=== PATIENT | male | born 1970 | race Caucasian/White ===

== ENCOUNTER 2022-10-20 15:11 | Inpatient (IN) | payer MEDICARE ==
--- NOTE | 2022-10-20 17:25 | ED ---
Psych HPI - General Chief Complaint: Psychiatric Symptoms Stated Complaint: Mental Health Evaluation Time Seen by Provider: 10/20/22 17:04 Source: patient Mode of arrival: ambulatory - History of Present Illness Initial Comments: This patient is a 52-year-old man who presents with complaint that he is more depressed than usual and having persistent thoughts of suicide. The patient states he has long-standing history of years of relapsing and recurring depression. Patient moved recently and when he changed County[place] they stop this medication. He states that things got little worse after that. It is been about a month. MD Complaint: suicidal ideation, feels depressed Onset/Timin -: month(s) Associated Psychiatric Symptoms: depression, suicidal ideation History of same: Yes Quality: intermittent, getting worse Improves With: medication Context: not taking psychiatric medications Associated Symptoms: denies other symptoms - Related Data Home Medications Medication Instructions Recorded Confirmed Ascorbic Acid [Vitamin C] 1,000 mg PO DAILY 10/20/22 10/20/22 Cholecalciferol [Vitamin D3 (125 375 mcg PO DAILY 10/20/22 10/20/22 Mcg = 5000 Iu)] Cholecalciferol [Vitamin D3 (25 25 mcg PO DAILY 10/20/22 10/20/22 Mcg = 1000 Iu)] Cyanocobalamin [Vitamin B-12] 500 mcg PO DAILY 10/20/22 10/20/22 FLUoxetine HCL [PROzac] 40 mg PO DAILY 10/20/22 10/20/22 Fenofibrate Nanocrystallized 145 mg PO DAILY 10/20/22 10/20/22 [Fenofibrate] Metoprolol Tartrate [Lopressor] 50 mg PO BID 10/20/22 10/20/22 OLANZapine [ZyPREXA] 20 mg PO HS 10/20/22 10/20/22 Omeprazole [PriLOSEC] 40 mg PO DAILY 10/20/22 10/20/22 Rosuvastatin [Crestor] 20 mg PO DAILY 10/20/22 10/20/22 Zinc Gluconate [Zinc] 50 mg PO DAILY 10/20/22 10/20/22 amLODIPine [Norvasc] 10 mg PO DAILY 10/20/22 10/20/22 clonazePAM [KlonoPIN] 1 mg PO HS 10/20/22 10/20/22 glipiZIDE [Glucotrol XL] 10 mg PO DAILY 10/20/22 10/20/22 hydroCHLOROthiazide 12.5 mg PO DAILY 10/20/22 10/20/22 lisinopriL [Zestril] 40 mg PO BID 10/20/22 10/20/22 metFORMIN HCL [Glucophage] 1,000 mg PO BID 10/20/22 10/20/22 Allergies Allergy/AdvReac Type Severity Reaction Status Date / Time Penicillins Allergy Diarrhea Verified 10/20/22 17:24 Review of Systems ROS Statement: Those systems with pertinent positive or pertinent negative responses have been documented in the HPI. ROS Other: All systems not noted in ROS Statement are negative. Constitutional: Denies: fever Respiratory: Denies: cough, dyspnea Cardiovascular: Denies: chest pain, palpitations Gastrointestinal: Denies: abdominal pain, vomiting, diarrhea Genitourinary: Denies: dysuria Musculoskeletal: Denies: back pain Skin: Denies: rash Neurological: Denies: headache, weakness Psychiatric: Reports: depression, suicidal thoughts Past Medical History Past Medical History: Asthma, Diabetes Mellitus, Hypertension Additional Past Medical History / Comment(s): diverticulitis History of Any Multi-Drug Resistant Organisms: None Reported Past Surgical History: Tonsillectomy Past Psychological History: Anxiety, Bipolar Smoking Status: Current every day smoker Past Alcohol Use History: Occasional Past Drug Use History: None Reported - Past Family History Father History Unknown: Yes Family Medical History: Hypertension General Exam Limitations: no limitations General appearance: alert, in no apparent distress Head exam: Present: atraumatic, normocephalic Eye exam: Present: normal appearance. Absent: scleral icterus, conjunctival inj ection Neck exam: Present: normal inspection, full ROM Respiratory exam: Present: normal lung sounds bilaterally. Absent: respiratory distress, wheezes, rales, rhonchi, stridor Cardiovascular Exam: Present: regular rate, normal rhythm, normal heart sounds. Absent: systolic murmur, diastolic murmur, rubs, gallop GI/Abdominal exam: Present: soft. Absent: distended, tenderness, guarding, rebound, rigid, mass Extremities exam: Present: normal inspection, normal capillary refill. Absent: pedal edema, calf tenderness Back exam: Present: normal inspection. Absent: CVA tenderness (R), CVA tenderness (L) Neurological exam: Present: alert Psychiatric exam: Present: depressed, suicidal ideation. Absent: agitated, anxious, flat affect, manic, homicidal ideation Skin exam: Present: warm, dry, intact, normal color. Absent: rash Course Vital Signs 10/20/22 15:16 Temperature 98.2 F Pulse Rate 81 Respiratory 16 Rate Blood Pressure 132/80 O2 Sat by Pulse 98 Oximetry Medical Decision Making - Medical Decision Making This patient is 52-year-old man with previous history of depression and suicidal ideation, who is having recurrence of the same. He had been off his medication due to relocating to [facility]. The patient is seen and evaluated by EPS,, and they will admit for further treatment here. Was pt. sent in by a medical professional or institution (, PA, BUSINESS SOLUTIONS ARCHITECT, urgent care, hospital, or fpc...) When possible be specific @ -[No] Did you speak to anyone other than the patient for history (EMS, parent, family, police, friend...)? What history was obtained from this source @ -[Patient family members at bedside during history and physical Did you review nursing and triage notes (agree or disagree)? Why? @ -[I reviewed and agree with nursing and triage notes] Were old charts reviewed (outside hosp., previous admission, EMS record, old EKG, old radiological studies, urgent care reports/EKG's, fpc records)? Report findings @ -[No old charts were reviewed] Differential Diagnosis (chest pain, altered mental status, abdominal pain women, abdominal pain men, vaginal bleeding, weakness, fever, dyspnea, syncope, headache, dizziness, GI bleed, back pain, seizure, CVA, palpatations, mental health, musculoskeletal)? @ -[Differential Mental Health Depression, anxiety, bipolar, psychosis, schizophrenia, borderline personality, situational depression, adjustment disorder, behavioral disorder, brain tumor, malingering, substance abuse, encephalopathy, medication reaction, dementia, hypothyroidism, degenerative neurologic disorder, lupus.... This is not meant to be all-inclusive list EKG interpreted by me (3pts min.). @ -[ X-rays interpreted by me (1pt min.). @ -[None done] CT interpreted by me (1pt min.). @ -[None done] U/S interpreted by me (1pt. min.). @ -[None done] What testing was considered but not performed or refused? (CT, X-rays, U/S, lab s)? Why? @ -[None] What meds were considered but not given or refused? Why? @ -[None] Did you discuss the management of the patient with other professionals (professionals i.e. , PA, BUSINESS SOLUTIONS ARCHITECT, lab, RT, psych nurse, social services specialist, bleach plant operator, teacher, life science technical officer, immigration case worker)? Give summary @ -[EPS personnel Was smoking cessation discussed for >3mins.? @ -[No] Was critical care preformed (if so, how long)? @ -[No] Were there social determinants of health that impacted care today? How? (Homelessness, low income, unemployed, alcoholism, drug addiction, transportation, low edu. Level, literacy, decrease access to med. care, skilled nursing, rehab)? @ -[No] Was there de-escalation of care discussed even if they declined (Discuss DNR or withdrawal of care, Hospice)? DNR status @ -[No] What co-morbidities impacted this encounter? (DM, HTN, Smoking, COPD, CAD, Cancer, CVA, ARF, Chemo, Hep., AIDS, mental health diagnosis, sleep apnea, morbid obesity)? @ -[Previous mood disorder Was patient admitted / discharged? Hospital course, mention meds given and route, prescriptions, significant lab abnormalities, going to OR and other pertinent info. @ -[Admitted Undiagnosed new problem with uncertain prognosis? @ -[No] Drug Therapy requiring intensive monitoring for toxicity (Heparin, Nitro, Insulin, Cardizem)? @ -[No] Were any procedures done? @ -[No] Diagnosis/symptom? @ -[Mood disorder Suicidal ideation Acute, or Chronic, or Acute on Chronic? @ -[Acute on chronic Uncomplicated (without systemic symptoms) or Complicated (systemic symptoms)? @ -[Uncomplicated Side effects of treatment? @ -[No] Exacerbation, Progression, or Severe Exacerbation? @ -[No] Poses a threat to life or bodily function? How? (Chest pain, [place], [place], pneumonia, PE, COPD, DKA, ARF, appy, cholecystitis, CVA, Diverticulitis, Homicidal, Suicidal, threat to staff... and all critical care pts) @ -[Yes, untreated mood disorder may progress to suicide attempt - Lab Data Result diagrams: 10/20/22 19:40 10/20/22 19:40 Lab Results 10/20/22 10/20/22 10/20/22 Range/Units 19:40 19:40 19:40 WBC 8.7 (3.8-10.6) k/uL RBC 4.85 (4.30-5.90) m/uL Hgb 14.4 (13.0-17.5) gm/dL Hct 41.7 (39.0-53.0) % MCV 86.0 (80.0-100.0) fL MCH 29.8 (25.0-35.0) pg MCHC 34.6 (31.0-37.0) g/dL RDW 13.1 (11.5-15.5) % Plt Count 275 (150-450) k/uL MPV 8.2 Neutrophils % 65 % Lymphocytes % 26 % Monocytes % 5 % Eosinophils % 2 % Basophils % 0 % Neutrophils # 5.7 (1.3-7.7) k/uL Lymphocytes # 2.3 (1.0-4.8) k/uL Monocytes # 0.4 (0-1.0) k/uL Eosinophils # 0.1 (0-0.7) k/uL Basophils # 0.0 (0-0.2) k/uL Sodium 134 L (137-145) mmol/L Potassium 3.8 (3.5-5.1) mmol/L Chloride 98 (98-107) mmol/L Carbon Dioxide 25 (22-30) mmol/L Anion Gap 11 mmol/L BUN 13 (9-20) mg/dL Creatinine 0.84 (0.66-1.25) mg/dL Est GFR (CKD-EPI)AfAm >90 (>60 ml/min/1.73 sqM) Est GFR (CKD-EPI)NonAf >90 (>60 ml/min/1.73 sqM) Glucose 196 H (74-99) mg/dL Calcium 9.5 (8.4-10.2) mg/dL Total Bilirubin 0.5 (0.2-1.3) mg/dL AST 26 (17-59) U/L ALT 32 (4-49) U/L Alkaline Phosphatase 54 (38-126) U/L Total Protein 6.7 (6.3-8.2) g/dL Albumin 4.3 (3.5-5.0) g/dL Urine Color Light Yellow Urine Appearance Clear (Clear) Urine pH 7.5 (5.0-8.0) Ur Specific [place] 1.010 (1.001-1.035) Urine Protein Negative (Negative) Urine Glucose (UA) 3+ H (Negative) Urine Ketones Negative (Negative) Urine Blood Negative (Negative) Urine Nitrite Negative (Negative) Urine Bilirubin Negative (Negative) Urine Urobilinogen <2.0 (<2.0) mg/dL Ur Leukocyte Esterase Negative (Negative) Urine Opiates Screen Not Detected (NotDetected) Ur Oxycodone Screen Not Detected (NotDetected) Urine Methadone Screen Not Detected (NotDetected) Ur Propoxyphene Screen Not Detected (NotDetected) Ur Barbiturates Screen Not Detected (NotDetected) U Tricyclic Antidepress Not Detected (NotDetected) Ur Phencyclidine Scrn Not Detected (NotDetected) Ur Amphetamines Screen Not Detected (NotDetected) U Methamphetamines Scrn Not Detected (NotDetected) U Benzodiazepines Scrn Not Detected (NotDetected) Urine Cocaine Screen Not Detected (NotDetected) U Marijuana (THC) Screen Not Detected (NotDetected) Coronavirus (PCR) (Not Detectd) 10/20/22 Range/Units 19:40 WBC (3.8-10.6) k/uL RBC (4.30-5.90) m/uL Hgb (13.0-17.5) gm/dL Hct (39.0-53.0) % MCV (80.0-100.0) fL MCH (25.0-35.0) pg MCHC (31.0-37.0) g/dL RDW (11.5-15.5) % Plt Count (150-450) k/uL MPV Neutrophils % % Lymphocytes % % Monocytes % % Eosinophils % % Basophils % % Neutrophils # (1.3-7.7) k/uL Lymphocytes # (1.0-4.8) k/uL Monocytes # (0-1.0) k/uL Eosinophils # (0-0.7) k/uL Basophils # (0-0.2) k/uL Sodium (137-145) mmol/L Potassium (3.5-5.1) mmol/L Chloride (98-107) mmol/L Carbon Dioxide (22-30) mmol/L Anion Gap mmol/L BUN (9-20) mg/dL Creatinine (0.66-1.25) mg/dL Est GFR (CKD-EPI)AfAm (>60 ml/min/1.73 sqM) Est GFR (CKD-EPI)NonAf (>60 ml/min/1.73 sqM) Glucose (74-99) mg/dL Calcium (8.4-10.2) mg/dL Total Bilirubin (0.2-1.3) mg/dL AST (17-59) U/L ALT (4-49) U/L Alkaline Phosphatase (38-126) U/L Total Protein (6.3-8.2) g/dL Albumin (3.5-5.0) g/dL Urine Color Urine Appearance (Clear) Urine pH (5.0-8.0) Ur Specific [place] (1.001-1.035) Urine Protein (Negative) Urine Glucose (UA) (Negative) Urine Ketones (Negative) Urine Blood (Negative) Urine Nitrite (Negative) Urine Bilirubin (Negative) Urine Urobilinogen (<2.0) mg/dL Ur Leukocyte Esterase (Negative) Urine Opiates Screen (NotDetected) Ur Oxycodone Screen (NotDetected) Urine Methadone Screen (NotDetected) Ur Propoxyphene Screen (NotDetected) Ur Barbiturates Screen (NotDetected) U Tricyclic Antidepress (NotDetected) Ur Phencyclidine Scrn (NotDetected) Ur Amphetamines Screen (NotDetected) U Methamphetamines Scrn (NotDetected) U Benzodiazepines Scrn (NotDetected) Urine Cocaine Screen (NotDetected) U Marijuana (THC) Screen (NotDetected) Coronavirus (PCR) Not Detected (Not Detectd) Disposition Clinical Impression: Suicidal ideation, Mood disorder Disposition: ADMITTED IP TO THIS HOSP Condition: Fair Is patient prescribed a controlled substance at d/c from ED?: No
[2022-10-20 20:03] LABS: Basophils % (A) 0 %; Eosinophils # (A) 0.1 k/uL (0-0.7); Eosinophils % (A) 2 %; HCT 41.7 % (39.0-53.0); HGB 14.4 gm/dL (13.0-17.5); Lymphocytes # (A) 2.3 k/uL (1.0-4.8); Lymphocytes % (A) 26 %; MCH 29.8 pg (25.0-35.0); MCHC 34.6 g/dL (31.0-37.0); Mean Platelet Volume 8.2; Monocytes # (A) 0.4 k/uL (0-1.0); Monocytes % (A) 5 %; Neutrophils # (A) 5.7 k/uL (1.3-7.7); Neutrophils % (A) 65 %; Platelet Count 275 k/uL (150-450); RBC 4.85 m/uL (4.30-5.90); RDW 13.1 % (11.5-15.5); WBC 8.7 k/uL (3.8-10.6)
[2022-10-20 20:06] LABS: ALT 32 U/L (4-49); AST 26 U/L (17-59); African American GFR (CKD) >90 (>60 ml/min/1.73 sqM); Albumin 4.3 g/dL (3.5-5.0); Alkaline Phosphatase 54 U/L (38-126); Anion Gap 11 mmol/L; Blood Urea Nitrogen 13 mg/dL (9-20); Calcium 9.5 mg/dL (8.4-10.2); Carbon Dioxide 25 mmol/L (22-30); Chloride 98 mmol/L (98-107); Glucose 196 mg/dL (74-99); Non-African American GFR(CKD) >90 (>60 ml/min/1.73 sqM); Potassium 3.8 mmol/L (3.5-5.1); Sodium 134 mmol/L (137-145); Total Bilirubin 0.5 mg/dL (0.2-1.3); Total Protein 6.7 g/dL (6.3-8.2)
[2022-10-20 20:10] LABS: Appearance,Urine Clear (Clear); Bilirubin,Urine Negative (Negative); Blood,Urine Negative (Negative); Color,Urine Light Yellow; Glucose,Urine (UA) 3+ (Negative); Ketones,Urine Negative (Negative); Leukocyte Esterase,Urine Negative (Negative); Nitrite,Urine Negative (Negative); PH, Urine 7.5 (5.0-8.0); Protein,Urine Negative (Negative); Urobilinogen,Urine <2.0 mg/dL (<2.0)
[2022-10-20 20:31] LABS: Amphetamine Screen,Urine Not Detected (NotDetected); Barbiturate Screen,Urine Not Detected (NotDetected); Benzodiazepines Screen,Urine Not Detected (NotDetected); Cocaine Screen,Urine Not Detected (NotDetected); Methadone Screen, Urine Not Detected (NotDetected); Opiate Screen,Urine Not Detected (NotDetected); Oxycodone Screen, Urine Not Detected (NotDetected); Phencyclidine Screen,Urine Not Detected (NotDetected); Tricyclic Antidepressant,Urine Not Detected (NotDetected); Urn Cannabinoid Scrn Not Detected (NotDetected)
[2022-10-20] MEDS ORDERED: ACETAMINOPHEN TAB 325 MG TAB PO PRN (22:10)
[2022-10-20] MEDS ORDERED: IBUPROFEN 600 MG TAB PO PRN (22:10)
[2022-10-20] MEDS ORDERED: MAG HYDROX/AL HYDROX/SIMETH 30 ML CUP PO PRN (22:10)
[2022-10-20] MEDS ORDERED: LORazepam 2 MG/ML INJ IM PRN (22:10)
[2022-10-20] MEDS ORDERED: MAGNESIUM HYDROXIDE 2,400 MG/10 ML CUP PO PRN (22:10)
[2022-10-20] MEDS: traZODone HCL 50 MG TAB PO PRN (22:53)
[2022-10-20] MEDS ORDERED: OLANZapine 10 MG TAB PO SCH (23:00)
--- NOTE | 2022-10-21 02:57 | P.CONS ---
History of Present Illness - Reason for Consult Consult date: 10/21/22 - History of Present Illness The patient is a 52-year-old male with a PMH of type II DM, hypertension, hyperlipidemia, asthma, anxiety, tobacco abuse who presents to the emergency room with complaints of depression and suicidal ideation. The patient reports that he has been off his Klonopin for about a month and that he has not been feeling well and has been feeling overwhelmed. The patient does not recall his last A1c. He states that he has not been taking care of his diabetes and has not seen a physician in quite some time. He reports smoking 1-1/2 pack of cigarettes daily. He denied alcohol or substance use. Denied any physical complaints at the time of interview. Denied experiencing chest discomfort, shortness of breath, fever, chills, cough, nausea, vomiting, abdominal pain, diarrhea. Review of systems: Pertinent positives and negatives as discussed in HPI, a complete review of systems was performed and all other systems are negative. Physical examination: General: non toxic, no distress, appears at stated age, normal weight Derm: no unusual rashes/lesions, no unusual ecchymoses, warm, dry Head: atraumatic, normocephalic, symmetric Eyes: EOMI, no lid lag, anicteric sclera ENT: Nose and ears atraumatic, no thrush, no pharyngeal erythema Neck: trachea midline, supple Mouth: no lip lesion, mucus membranes moist Cardiovascular: S1S2 reg, no murmur, no edema Lungs: CTA bilateral, no rhonchi, no rales , no accessory muscle use Abdominal: soft, nontender to palpation, no guarding Ext: no gross muscle atrophy, no contractures, Neuro: No gross focal neuro deficits noted Psych: Alert, oriented, appropriate affect Assessment: Chronic conditions: Type 2 DM, hypertension, HLD, asthma Depression and suicidal ideation Imaging: None performed Data Review: Laboratory evaluation was reviewed and remarkable for urine toxicology negative, sodium 134, glucose 196, white virus PCR negative. Plan: Continue with home medications including lisinopril, Lopressor, hyd rochlorothiazide, glipizide, Norvasc, metformin, Crestor Defer management of depression and suicidal ideation to primary psychiatry service Thank you for allowing us to participate in the care of this patient. We will follow peripherally. Do not hesitate to contact us with questions. Someone can be reached from the [facility] hospitalist group at all hours of the day at [phone]. Past Medical History Past Medical History: Asthma, Diabetes Mellitus, Hypertension Additional Past Medical History / Comment(s): diverticulitis History of Any Multi-Drug Resistant Organisms: None Reported Past Surgical History: Tonsillectomy Past Anesthesia/Blood Transfusion Reactions: No Reported Reaction Past Psychological History: Anxiety, Bipolar Smoking Status: Current every day smoker Past Alcohol Use History: Occasional Past Drug Use History: None Reported - Past Family History Father History Unknown: Yes Family Medical History: Hypertension Medications and Allergies Home Medications Medication Instructions Recorded Confirmed Type Ascorbic Acid [Vitamin C] 1,000 mg PO DAILY 10/20/22 10/20/22 History Cholecalciferol [Vitamin D3 (125 375 mcg PO DAILY 10/20/22 10/20/22 History Mcg = 5000 Iu)] Cholecalciferol [Vitamin D3 (25 25 mcg PO DAILY 10/20/22 10/20/22 History Mcg = 1000 Iu)] Cyanocobalamin [Vitamin B-12] 500 mcg PO DAILY 10/20/22 10/20/22 History FLUoxetine HCL [PROzac] 40 mg PO DAILY 10/20/22 10/20/22 History Fenofibrate Nanocrystallized 145 mg PO DAILY 10/20/22 10/20/22 History [Fenofibrate] Metoprolol Tartrate [Lopressor] 50 mg PO BID 10/20/22 10/20/22 History OLANZapine [ZyPREXA] 20 mg PO HS 10/20/22 10/20/22 History Omeprazole [PriLOSEC] 40 mg PO DAILY 10/20/22 10/20/22 History Rosuvastatin [Crestor] 20 mg PO DAILY 10/20/22 10/20/22 History Zinc Gluconate [Zinc] 50 mg PO DAILY 10/20/22 10/20/22 History amLODIPine [Norvasc] 10 mg PO DAILY 10/20/22 10/20/22 History clonazePAM [KlonoPIN] 1 mg PO HS 10/20/22 10/20/22 History glipiZIDE [Glucotrol XL] 10 mg PO DAILY 10/20/22 10/20/22 History hydroCHLOROthiazide 12.5 mg PO DAILY 10/20/22 10/20/22 History lisinopriL [Zestril] 40 mg PO BID 10/20/22 10/20/22 History metFORMIN HCL [Glucophage] 1,000 mg PO BID 10/20/22 10/20/22 History Allergies Allergy/AdvReac Type Severity Reaction Status Date / Time Penicillins Allergy Diarrhea Verified 10/20/22 17:24 Physical Exam Vitals: Vital Signs Temp Pulse Pulse Resp BP BP Pulse Ox 10/20/22 23:17 98.6 F 83 18 127/84 96 10/20/22 15:16 98.2 F 81 16 132/80 98 Intake and Output 10/20/22 10/20/22 10/21/22 14:59 22:59 06:59 Other: Weight 88.451 kg 84.567 kg Results CBC & Chem 7: 10/20/22 19:40 10/20/22 19:40 Labs: Abnormal Lab Results - Last 24 Hours (Table) 10/20/22 10/20/22 Range/Units 19:40 19:40 Sodium 134 L (137-145) mmol/L Glucose 196 H (74-99) mg/dL Urine Glucose (UA) 3+ H (Negative)
[2022-10-21] MEDS: ASCORBIC ACID 500 MG TAB PO SCH (08:16)
[2022-10-21] MEDS: PANTOPRAZOLE 40 MG TABLET PO SCH (08:16)
[2022-10-21] MEDS: metFORMIN 500 MG TAB PO SCH ×2 (08:16→21:51)
[2022-10-21] MEDS: glipiZIDE 5 MG TAB PO SCH ×2 (08:17→21:50)
[2022-10-21] MEDS: CHOLECALCIFEROL 125 MCG (5000 IU) TABLET PO SCH (08:17)
[2022-10-21] MEDS: amLODIPine 10 MG TAB PO SCH (08:17)
[2022-10-21] MEDS: FLUoxetine HCL 20 MG CAP PO SCH (08:17)
[2022-10-21] MEDS: FENOFIBRATE 160 MG TAB PO SCH (08:17)
[2022-10-21] MEDS: METOPROLOL TARTRATE 50 MG TAB PO SCH ×2 (08:17→21:50)
[2022-10-21] MEDS: CYANOCOBALAMIN 500 MCG TAB PO SCH (08:17)
[2022-10-21] MEDS: lisinopriL 20 MG TAB PO SCH ×2 (08:17→21:50)
[2022-10-21] MEDS: ZINC SULFATE 220 MG CAP PO SCH (08:17)
[2022-10-21] MEDS: CHOLECALCIFEROL 25 MCG (1000 IU) TABLET PO SCH (08:17)
[2022-10-21] MEDS: hydroCHLOROthiazide 12.5 MG CAP PO SCH (08:17)
[2022-10-21] MEDS: ATORVASTATIN 40 MG TAB PO SCH (08:17)
[2022-10-21 09:25] LABS: ALT 32 U/L (4-49); AST 26 U/L (17-59); African American GFR (CKD) >90 (>60 ml/min/1.73 sqM); Albumin 4.6 g/dL (3.5-5.0); Alkaline Phosphatase 66 U/L (38-126); Anion Gap 9 mmol/L; Blood Urea Nitrogen 14 mg/dL (9-20); Calcium 9.9 mg/dL (8.4-10.2); Carbon Dioxide 28 mmol/L (22-30); Chloride 100 mmol/L (98-107); Glucose 221 mg/dL (74-99); Non-African American GFR(CKD) >90 (>60 ml/min/1.73 sqM); Potassium 4.5 mmol/L (3.5-5.1); Sodium 137 mmol/L (137-145); Total Bilirubin 0.8 mg/dL (0.2-1.3); Total Protein 7.3 g/dL (6.3-8.2)
[2022-10-21 09:27] LABS: Basophils % (A) 0 %; Eosinophils # (A) 0.1 k/uL (0-0.7); Eosinophils % (A) 1 %; HCT 45.9 % (39.0-53.0); HGB 15.5 gm/dL (13.0-17.5); Lymphocytes # (A) 2.1 k/uL (1.0-4.8); Lymphocytes % (A) 24 %; MCH 29.6 pg (25.0-35.0); MCHC 33.7 g/dL (31.0-37.0); MCV 87.8 fL (80.0-100.0); Mean Platelet Volume 8.5; Monocytes # (A) 0.5 k/uL (0-1.0); Monocytes % (A) 6 %; Neutrophils # (A) 5.6 k/uL (1.3-7.7); Neutrophils % (A) 65 %; Platelet Count 289 k/uL (150-450); RBC 5.22 m/uL (4.30-5.90); RDW 13.1 % (11.5-15.5); WBC 8.6 k/uL (3.8-10.6)
--- NOTE | 2022-10-21 13:04 | P.HP ---
Psychiatric H&P - . H&P Date: 10/21/22 History & Physical: Allergies Allergy/AdvReac Type Severity Reaction Status Date / Time Penicillins Allergy Diarrhea Verified 10/20/22 17:24 Vital Signs Temp 98.4 F 10/21/22 06:42 Pulse 88 10/21/22 06:42 Resp 16 10/21/22 06:42 BP 128/68 10/21/22 06:42 Pulse Ox 93 L 10/21/22 06:42 FiO2 Intake & Output 10/20/22 10/21/22 10/21/22 18:59 06:59 18:59 Weight 88.451 kg 84.567 kg Laboratory Last Values WBC 8.6 k/uL (3.8-10.6) 10/21/22 08:40 RBC 5.22 m/uL (4.30-5.90) 10/21/22 08:40 Hgb 15.5 gm/dL (13.0-17.5) 10/21/22 08:40 Hct 45.9 % (39.0-53.0) 10/21/22 08:40 MCV 87.8 fL (80.0-100.0) 10/21/22 08:40 MCH 29.6 pg (25.0-35.0) 10/21/22 08:40 MCHC 33.7 g/dL (31.0-37.0) 10/21/22 08:40 RDW 13.1 % (11.5-15.5) 10/21/22 08:40 Plt Count 289 k/uL (150-450) 10/21/22 08:40 MPV 8.5 10/21/22 08:40 Neutrophils % 65 % 10/21/22 08:40 Lymphocytes % 24 % 10/21/22 08:40 Monocytes % 6 % 10/21/22 08:40 Eosinophils % 1 % 10/21/22 08:40 Basophils % 0 % 10/21/22 08:40 Neutrophils # 5.6 k/uL (1.3-7.7) 10/21/22 08:40 Lymphocytes # 2.1 k/uL (1.0-4.8) 10/21/22 08:40 Monocytes # 0.5 k/uL (0-1.0) 10/21/22 08:40 Eosinophils # 0.1 k/uL (0-0.7) 10/21/22 08:40 Basophils # 0.0 k/uL (0-0.2) 10/21/22 08:40 Sodium 137 mmol/L (137-145) 10/21/22 08:40 Potassium 4.5 mmol/L (3.5-5.1) 10/21/22 08:40 Chloride 100 mmol/L (98-107) 10/21/22 08:40 Carbon Dioxide 28 mmol/L (22-30) 10/21/22 08:40 Anion Gap 9 mmol/L 10/21/22 08:40 BUN 14 mg/dL (9-20) 10/21/22 08:40 Creatinine 0.85 mg/dL (0.66-1.25) 10/21/22 08:40 Est GFR (CKD-EPI)AfAm >90 (>60 ml/min/1.73 sqM) 10/21/22 08:40 Est GFR (CKD-EPI)NonAf >90 (>60 ml/min/1.73 sqM) 10/21/22 08:40 Glucose 221 mg/dL (74-99) H 10/21/22 08:40 Calcium 9.9 mg/dL (8.4-10.2) 10/21/22 08:40 Total Bilirubin 0.8 mg/dL (0.2-1.3) 10/21/22 08:40 AST 26 U/L (17-59) 10/21/22 08:40 ALT 32 U/L (4-49) 10/21/22 08:40 Alkaline Phosphatase 66 U/L (38-126) 10/21/22 08:40 Total Protein 7.3 g/dL (6.3-8.2) 10/21/22 08:40 Albumin 4.6 g/dL (3.5-5.0) 10/21/22 08:40 TSH 0.845 mIU/L (0.465-4.680) 10/21/22 08:40 Urine Color Light Yellow 10/20/22 19:40 Urine Appearance Clear (Clear) 10/20/22 19:40 Urine pH 7.5 (5.0-8.0) 10/20/22 19:40 Ur Specific [place] 1.010 (1.001-1.035) 10/20/22 19:40 Urine Protein Negative (Negative) 10/20/22 19:40 Urine Glucose (UA) 3+ (Negative) H 10/20/22 19:40 Urine Ketones Negative (Negative) 10/20/22 19:40 Urine Blood Negative (Negative) 10/20/22 19:40 Urine Nitrite Negative (Negative) 10/20/22 19:40 Urine Bilirubin Negative (Negative) 10/20/22 19:40 Urine Urobilinogen <2.0 mg/dL (<2.0) 10/20/22 19:40 Ur Leukocyte Esterase Negative (Negative) 10/20/22 19:40 Urine Opiates Screen Not Detected (NotDetected) 10/20/22 19:40 Ur Oxycodone Screen Not Detected (NotDetected) 10/20/22 19:40 Urine Methadone Screen Not Detected (NotDetected) 10/20/22 19:40 Ur Propoxyphene Screen Not Detected (NotDetected) 10/20/22 19:40 Ur Barbiturates Screen Not Detected (NotDetected) 10/20/22 19:40 U Tricyclic Antidepress Not Detected (NotDetected) 10/20/22 19:40 Ur Phencyclidine Scrn Not Detected (NotDetected) 10/20/22 19:40 Ur Amphetamines Screen Not Detected (NotDetected) 10/20/22 19:40 U Methamphetamines Scrn Not Detected (NotDetected) 10/20/22 19:40 U Benzodiazepines Scrn Not Detected (NotDetected) 10/20/22 19:40 Urine Cocaine Screen Not Detected (NotDetected) 10/20/22 19:40 U Marijuana (THC) Screen Not Detected (NotDetected) 10/20/22 19:40 Coronavirus (PCR) Not Detected (Not Detectd) 10/20/22 19:40 10/21/22 13:04 IDENTIFYING DATA: Patient is a , unemployed, 52-year-old male with significant history of bipolar disorder and obsessive-compulsive disorder who presents for hospital on 10/20/2022 for suicidal ideation HPI: Patient presented to the hospital on 10/20/2022 for suicidal ideation. The patient reports that he has been expressing worsening mood for approximately one month. He states that he quit his job one month ago and has been increasingly overwhelmed. He reports that he ran out of his prescribed Klonopin and his anxiety and mood has been getting worse. He reports that he moved from [facility] to [place], [place] and has not been able to establish care with an outpatient provider. In regards to mental health symptoms, the patient reports decreased sleep, suicidal ideation, irregular appetite, hopelessness, helplessness, and decreased hygiene and grooming. He reports that he has no intention to kill himself however he had a plan to overdose if things did not get better. He also reports that he has previously attempted suicide by overdose back in 1999. The patient does report a significant history of justine. He reports that he has previously gone 37 days with no sleep. He does report significant history of racing thoughts, increased goal-directed activity, and impulsivity. In regards to psychotic symptoms, the patient denies any history of auditory or visual hallucinations. He reports no paranoia or other delusions. The patient does endorse significant history of obsessive-compulsive disorder. He reports that he previously used to experience intrusive sexual thoughts however these have stopped years ago. He does report intrusive suicidal thoughts. PAST PSYCHIATRIC HISTORY: Patient states that he has been previously diagnosed with OCD and bipolar disorder. The patient recalls being previously prescribed Abilify, Pamelor, Navane, Effexor, Depakote, lithium, and Geodon. He is currently on a home regimen of Prozac and Zyprexa. He says that he has been on Zyprexa for many years. The patient reports that this is his seventh inpatient psychiatric admission. He reports that his last psychiatric admission was in [place] back in 2007. Patient reports that he is in the process of opening his case with [facility]. He reports one prior attempt at suicide by overdose in 1999. PMH: Past Medical History: Asthma, Diabetes Mellitus, Hypertension Additional Past Medical History / Comment(s): diverticulitis History of Any Multi-Drug Resistant Organisms: None Reported Past Surgical History: Tonsillectomy Past Psychological History: Anxiety, Bipolar Smoking Status: Current every day smoker Past Alcohol Use History: Occasional Past Drug Use History: None Reported ALLERGIES: Penicillin CHEMICAL DEPENDENCY HISTORY: Patient reports that he smokes 1-1/2 packs per day of tobacco. He denies any alcohol, marijuana, or illicit drug use. FAMILY PSYCHIATRIC/SUBSTANCE USE HISTORY: The patient reports that his mother had panic disorder. He reports that his brothers have depression and PTSD. SOCIAL HISTORY: Patient states that he is currently to his Radha for the past 6 years. He has 4 stepchildren. He currently lives with 2 of his stepchildren, Radha, and his mother. 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 He graduated high school. He reports no legal issues. He states that he is Muslim. MENTAL STATUS EXAM: General Appearance: Patient appears to be stated age is alert, directable, and attempts to cooperate. Patient appears to have slightly disheveled hygiene and grooming. Patient is missing his front upper teeth. Behavior: Patient is seated without any agitated behavior. Eye contact is appropriate. Speech: Patient's speech is fluent and spontaneous. Mildly pressured. Hyperverbal and rapid. Mood/Affect: Patient reports their mood is depressed, affect is somewhat bright and mood incongruent Suicidality/Homicidality: Patient denies any homicidal ideation. He does report suicidal ideation with a plan but no intention. Perceptions: Patient denies any visual hallucinations and denies any auditory hallucinations Though content/process: There is no evidence of any delusional thought content and thought process is linear and goal-directed. Memory and concentration: AOX3, grossly intact for the purposes of this session. Can spell "WORLD" backwards Judgment and insight: Fair STRENGTHS/WEAKNESSES: Strength is that the patient is resilient and future oriented. Weakness is that the patient is currently and recently unemployed INTELLECT: average IMPRESSIONS: Bipolar 1 disorder, mixed episode Obsessive-compulsive disorder Nicotine dependence PLAN: -Patient is admitted under voluntary status to [facility]HU for stabilization of psychiatric symptoms and safety. Patient signed adult voluntary form and medication consent and is placed in patient's chart. -Medications : Will start patient on Discontinue Zyprexa and start Seroquel 200 mg by mouth at bedtime for mood stabilization/insomnia Continue Prozac 40 mg by mouth daily for bipolar depression and OCD Discussed with patient that we will likely initiate treatment with Lamictal tomorrow. -Ativan PRN for agitation/aggression -Patient was counselled on substance abuse and desired to cut back on use -Patient was informed of the risks, benefits and side effects of the medication and patient verbally consented to taking the medications. Patient signed med consent form and was placed in chart. -Internal Medicine consult to perform medical evaluation and physical. -NRT - nicotine patch -SW on board for discharge planning. Encourage patient to participate in groups to work on coping skills. 10/21/22 13:04
[2022-10-21 16:22] LABS: Chol/HDL Ratio 3.17 Ratio; LDL Cholesterol,Calculated 86.8 mg/dL (0.0-131.0)
[2022-10-21] MEDS ORDERED: DEXTROSE 50% SYRINGE 50 ML IVP PRN ×2 (16:59)
[2022-10-21] MEDS: INSULIN ASPART (NovoLOG) 100 UNIT/ML VIAL SQ SCH ×2 (17:59→20:12)
[2022-10-21 18:01] LABS: Glucose,Whole Blood 137 mg/dL (70-110)
[2022-10-21 20:08] LABS: Glucose,Whole Blood 127 mg/dL (70-110)
[2022-10-21] MEDS ORDERED: QUEtiapine 200 MG TAB PO SCH (21:00)
[2022-10-21] MEDS: traZODone HCL 50 MG TAB PO PRN (21:51)
[2022-10-22 07:42] LABS: Glucose,Whole Blood 148 mg/dL (70-110)
[2022-10-22] MEDS: INSULIN ASPART (NovoLOG) 100 UNIT/ML VIAL SQ SCH ×4 (09:48→21:13)
[2022-10-22] MEDS: metFORMIN 500 MG TAB PO SCH ×2 (09:50→21:22)
[2022-10-22] MEDS: lisinopriL 20 MG TAB PO SCH ×2 (09:50→21:22)
[2022-10-22] MEDS: amLODIPine 10 MG TAB PO SCH ×2 (09:50→10:17)
[2022-10-22] MEDS: CHOLECALCIFEROL 25 MCG (1000 IU) TABLET PO SCH (09:51)
[2022-10-22] MEDS: CYANOCOBALAMIN 500 MCG TAB PO SCH (09:51)
[2022-10-22] MEDS: PANTOPRAZOLE 40 MG TABLET PO SCH (09:52)
[2022-10-22] MEDS: ATORVASTATIN 40 MG TAB PO SCH (09:52)
[2022-10-22] MEDS: ASCORBIC ACID 500 MG TAB PO SCH (09:52)
[2022-10-22] MEDS: CHOLECALCIFEROL 125 MCG (5000 IU) TABLET PO SCH (09:54)
[2022-10-22] MEDS: FLUoxetine HCL 20 MG CAP PO SCH (09:56)
[2022-10-22] MEDS: FENOFIBRATE 160 MG TAB PO SCH (09:57)
[2022-10-22] MEDS: METOPROLOL TARTRATE 50 MG TAB PO SCH ×2 (10:00→21:22)
[2022-10-22] MEDS: ZINC SULFATE 220 MG CAP PO SCH (10:01)
[2022-10-22] MEDS: hydroCHLOROthiazide 12.5 MG CAP PO SCH (10:02)
[2022-10-22] MEDS: glipiZIDE 5 MG TAB PO SCH ×2 (10:02→21:22)
--- NOTE | 2022-10-22 11:22 | P.PN ---
Progress Note - Text Progress Note Date: 10/22/22 Interval History: Patient was seen wandering the hallways and was directable and agreeable to speak with ticket writer in the office. Currently, the patient reports suicidal ideation. He expresses that he reports sleep last night and continues to experience racing thoughts, elevated anxiety, and intrusive thoughts of suicide. He reports no homicidal ideation. He reports no auditory or visual hallucinations. He states that he has not been able to shower or dresses hygiene yet. He denies any issues regarding his appetite. He has been adherent with his medications and is not endorsing any significant side effects at this time. He reports no paranoia or other delusions. Mental Status Exam: General Appearance: Patient appears to be stated age is alert, directable, and cooperative. Behavior: Patient is calmly seated without any agitated behavior. Speech: Patient's speech is fluent and nonpressured. Mood/Affect: Mood is "not doing so good," affect is congruent and constricted. Suicidality/Homicidality: Patient denies having any suicidal or homicidal ideation intent or plan. Perceptions: Patient denies any visual hallucinations and denies any auditory hallucinations Though content/process: There is no evidence of any delusional thought content and thought process is linear and goal-directed. Memory and concentration: AOX3, grossly intact for the purposes of this session Judgment and insight: Improving mildly Vital Signs Temp 98.1 F 10/22/22 06:42 Pulse 82 10/22/22 06:42 Resp 16 10/22/22 06:42 BP 105/58 10/22/22 06:42 Pulse Ox 98 10/22/22 06:42 FiO2 Laboratory Results WBC 8.6 k/uL (3.8-10.6) 10/21/22 08:40 RBC 5.22 m/uL (4.30-5.90) 10/21/22 08:40 Hgb 15.5 gm/dL (13.0-17.5) 10/21/22 08:40 Hct 45.9 % (39.0-53.0) 10/21/22 08:40 MCV 87.8 fL (80.0-100.0) 10/21/22 08:40 MCH 29.6 pg (25.0-35.0) 10/21/22 08:40 MCHC 33.7 g/dL (31.0-37.0) 10/21/22 08:40 RDW 13.1 % (11.5-15.5) 10/21/22 08:40 Plt Count 289 k/uL (150-450) 10/21/22 08:40 MPV 8.5 10/21/22 08:40 Neutrophils % 65 % 10/21/22 08:40 Lymphocytes % 24 % 10/21/22 08:40 Monocytes % 6 % 10/21/22 08:40 Eosinophils % 1 % 10/21/22 08:40 Basophils % 0 % 10/21/22 08:40 Neutrophils # 5.6 k/uL (1.3-7.7) 10/21/22 08:40 Lymphocytes # 2.1 k/uL (1.0-4.8) 10/21/22 08:40 Monocytes # 0.5 k/uL (0-1.0) 10/21/22 08:40 Eosinophils # 0.1 k/uL (0-0.7) 10/21/22 08:40 Basophils # 0.0 k/uL (0-0.2) 10/21/22 08:40 Sodium 137 mmol/L (137-145) 10/21/22 08:40 Potassium 4.5 mmol/L (3.5-5.1) 10/21/22 08:40 Chloride 100 mmol/L (98-107) 10/21/22 08:40 Carbon Dioxide 28 mmol/L (22-30) 10/21/22 08:40 Anion Gap 9 mmol/L 10/21/22 08:40 BUN 14 mg/dL (9-20) 10/21/22 08:40 Creatinine 0.85 mg/dL (0.66-1.25) 10/21/22 08:40 Est GFR (CKD-EPI)AfAm >90 (>60 ml/min/1.73 sqM) 10/21/22 08:40 Est GFR (CKD-EPI)NonAf >90 (>60 ml/min/1.73 sqM) 10/21/22 08:40 Glucose 221 mg/dL (74-99) H 10/21/22 08:40 POC Glucose (mg/dL) 148 mg/dL (70-110) H 10/22/22 07:36 POC Glu Drum Sealer ID 10/22/22 07:[address] Glu mg/dL 191 10/21/22 08:40 Hemoglobin A1c 8.3 % (0.0-6.0) H 10/21/22 08:40 Calcium 9.9 mg/dL (8.4-10.2) 10/21/22 08:40 Total Bilirubin 0.8 mg/dL (0.2-1.3) 10/21/22 08:40 AST 26 U/L (17-59) 10/21/22 08:40 ALT 32 U/L (4-49) 10/21/22 08:40 Alkaline Phosphatase 66 U/L (38-126) 10/21/22 08:40 Total Protein 7.3 g/dL (6.3-8.2) 10/21/22 08:40 Albumin 4.6 g/dL (3.5-5.0) 10/21/22 08:40 Triglycerides 131.00 mg/dL (0.00-149.00) 10/21/22 08:40 Cholesterol 165.00 mg/dL (0.00-200.00) 10/21/22 08:40 LDL Cholesterol, Calc 86.8 mg/dL (0.0-131.0) 10/21/22 08:40 VLDL Cholesterol, Calc 26.20 mg/dL (5.00-40.00) 10/21/22 08:40 HDL Cholesterol 52.00 mg/dL (40.00-60.00) 10/21/22 08:40 Cholesterol/HDL Ratio 3.17 Ratio 10/21/22 08:40 TSH 0.845 mIU/L (0.465-4.680) 10/21/22 08:40 Urine Color Light Yellow 10/20/22 19:40 Urine Appearance Clear (Clear) 10/20/22 19:40 Urine pH 7.5 (5.0-8.0) 10/20/22 19:40 Ur Specific [place] 1.010 (1.001-1.035) 10/20/22 19:40 Urine Protein Negative (Negative) 10/20/22 19:40 Urine Glucose (UA) 3+ (Negative) H 10/20/22 19:40 Urine Ketones Negative (Negative) 10/20/22 19:40 Urine Blood Negative (Negative) 10/20/22 19:40 Urine Nitrite Negative (Negative) 10/20/22 19:40 Urine Bilirubin Negative (Negative) 10/20/22 19:40 Urine Urobilinogen <2.0 mg/dL (<2.0) 10/20/22 19:40 Ur Leukocyte Esterase Negative (Negative) 10/20/22 19:40 Urine Opiates Screen Not Detected (NotDetected) 10/20/22 19:40 Ur Oxycodone Screen Not Detected (NotDetected) 10/20/22 19:40 Urine Methadone Screen Not Detected (NotDetected) 10/20/22 19:40 Ur Propoxyphene Screen Not Detected (NotDetected) 10/20/22 19:40 Ur Barbiturates Screen Not Detected (NotDetected) 10/20/22 19:40 U Tricyclic Antidepress Not Detected (NotDetected) 10/20/22 19:40 Ur Phencyclidine Scrn Not Detected (NotDetected) 10/20/22 19:40 Ur Amphetamines Screen Not Detected (NotDetected) 10/20/22 19:40 U Methamphetamines Scrn Not Detected (NotDetected) 10/20/22 19:40 U Benzodiazepines Scrn Not Detected (NotDetected) 10/20/22 19:40 Urine Cocaine Screen Not Detected (NotDetected) 10/20/22 19:40 U Marijuana (THC) Screen Not Detected (NotDetected) 10/20/22 19:40 Coronavirus (PCR) Not Detected (Not Detectd) 10/20/22 19:40 Assessment Bipolar 1 disorder, mixed episode Obsessive-compulsive disorder Nicotine dependence Plan: -Patient continues to meet criteria for inpatient psychiatric admission for symptom stabilization and safety. Patient has signed adult voluntary form and medication consent and was placed in patient's chart. -Medications: Increase Seroquel to 300 mg by mouth at bedtime for mood stabilization/insomnia Increase trazodone 20 mg by mouth at bedtime for insomnia Start Lamictal 25 mg by mouth at bedtime for mood stabilization Continue Prozac 40 mg by mouth daily for OCD -When necessary Ativan for agitation/aggression. -NRT - nicotine patch -SW on board for discharge planning. Encouraged the patient to participate in milieu.
[2022-10-22 12:44] LABS: Glucose,Whole Blood 183 mg/dL (70-110)
[2022-10-22 17:37] LABS: Glucose,Whole Blood 105 mg/dL (70-110)
[2022-10-22 20:05] LABS: Glucose,Whole Blood 122 mg/dL (70-110)
[2022-10-22] MEDS ORDERED: lamoTRIgine 25 MG TAB PO SCH (21:00)
[2022-10-22] MEDS ORDERED: QUEtiapine 100 MG TAB PO SCH (21:00)
[2022-10-22] MEDS: traZODone HCL 50 MG TAB PO SCH (21:22)
[2022-10-23 07:50] LABS: Glucose,Whole Blood 178 mg/dL (70-110)
[2022-10-23] MEDS: INSULIN ASPART (NovoLOG) 100 UNIT/ML VIAL SQ SCH ×4 (07:53→20:13)
[2022-10-23] MEDS: metFORMIN 500 MG TAB PO SCH ×2 (08:35→21:17)
[2022-10-23] MEDS: lisinopriL 20 MG TAB PO SCH ×2 (08:35→21:17)
[2022-10-23] MEDS: hydroCHLOROthiazide 12.5 MG CAP PO SCH (08:35)
[2022-10-23] MEDS: LORazepam 1 MG TAB PO PRN ×2 (08:35→21:16)
[2022-10-23] MEDS: ZINC SULFATE 220 MG CAP PO SCH (08:35)
[2022-10-23] MEDS: ASCORBIC ACID 500 MG TAB PO SCH (08:36)
[2022-10-23] MEDS: FENOFIBRATE 160 MG TAB PO SCH (08:37)
[2022-10-23] MEDS: CHOLECALCIFEROL 125 MCG (5000 IU) TABLET PO SCH (08:37)
[2022-10-23] MEDS: CHOLECALCIFEROL 25 MCG (1000 IU) TABLET PO SCH (08:37)
[2022-10-23] MEDS: CYANOCOBALAMIN 500 MCG TAB PO SCH (08:37)
[2022-10-23] MEDS: amLODIPine 10 MG TAB PO SCH (08:37)
[2022-10-23] MEDS: METOPROLOL TARTRATE 50 MG TAB PO SCH ×2 (08:37→21:17)
[2022-10-23] MEDS: glipiZIDE 5 MG TAB PO SCH ×2 (08:37→21:17)
[2022-10-23] MEDS: PANTOPRAZOLE 40 MG TABLET PO SCH (08:38)
[2022-10-23] MEDS: ATORVASTATIN 40 MG TAB PO SCH (08:38)
[2022-10-23] MEDS: FLUoxetine HCL 20 MG CAP PO SCH (08:39)
[2022-10-23] MEDS ORDERED: lamoTRIgine 25 MG TAB PO STA (09:46)
[2022-10-23] MEDS: ASPIRIN 81 MG PO SCH (10:40)
[2022-10-23 12:53] LABS: Glucose,Whole Blood 99 mg/dL (70-110)
--- NOTE | 2022-10-23 13:37 | P.PN ---
Progress Note - Text Progress Note Date: 10/23/22 Interval History: Patient was seen wandering the hallways and was directable and agreeable to speak with financial writer in the office. The patient reports that he continues to express suicidal ideation however reports no intention or plan. He reports that his suicidal thoughts are receding. He reports no auditory or visual hallucinations. He denies any paranoia or other delusions. The patient does express that he continues to experience poor sleep and racing thoughts. He r eports that he "thinks about anything and everything." He states that the racing thoughts are causing him significant distress. He has been adherent with his medications and is not endorsing any significant side effects. Reports no other issues regarding his appetite or his general medical health. Mental Status Exam: General Appearance: Patient appears to be stated age is alert, directable, and cooperative. Behavior: Patient is calmly seated without any agitated behavior. Speech: Patient's speech is fluent and nonpressured. Mood/Affect: Mood is "having difficulty with sleep," affect is congruent and constricted. Suicidality/Homicidality: Patient denies having any suicidal or homicidal ideation intent or plan. Perceptions: Patient denies any visual hallucinations and denies any auditory hallucinations Though content/process: There is no evidence of any delusional thought content and thought process is linear and goal-directed. Memory and concentration: AOX3, grossly intact for the purposes of this session Judgment and insight: Improving mildly Vital Signs Temp 97.2 F L 10/23/22 06:43 Pulse 99 10/23/22 06:43 Resp 14 10/23/22 06:43 BP 117/62 10/23/22 06:43 Pulse Ox 98 10/22/22 06:42 FiO2 Laboratory Results - Last 24 Hours 10/22/22 10/22/22 10/23/22 17:35 20:03 07:45 POC Glucose (mg/dL) 105 122 H 178 H POC Glu Senior Abap Developer ID Carolyne Landry Erin Gibbs, Desiree 10/23/22 12:50 POC Glucose (mg/dL) 99 POC Glu Senior Abap Developer ID Barby Mckeon Assessment Bipolar 1 disorder, mixed episode Obsessive-compulsive disorder Nicotine dependence Plan: -Patient continues to meet criteria for inpatient psychiatric admission for symptom stabilization and safety. Patient has signed adult voluntary form and medication consent and was placed in patient's chart. -Medications: Increase Seroquel to 400 mg by mouth at bedtime for mood stabilization/insomnia Continue trazodone 100 mg by mouth at bedtime for insomnia Increase Lamictal to 25 mg by mouth twice daily for mood stabilization Continue Prozac 40 mg by mouth daily for OCD -When necessary Ativan for agitation/aggression. -NRT - nicotine patch -SW on board for discharge planning. Encouraged the patient to participate in milieu.
[2022-10-23 17:42] LABS: Glucose,Whole Blood 124 mg/dL (70-110)
[2022-10-23 20:12] LABS: Glucose,Whole Blood 256 mg/dL (70-110)
[2022-10-23 20:12] LABS: Glucose,Whole Blood 245 mg/dL (70-110)
[2022-10-23] MEDS: traZODone HCL 50 MG TAB PO SCH (21:16)
[2022-10-23] MEDS: lamoTRIgine 25 MG TAB PO SCH (21:17)
[2022-10-23] MEDS: QUEtiapine 400 MG TAB PO SCH (21:17)
[2022-10-24 07:47] LABS: Glucose,Whole Blood 139 mg/dL (70-110)
[2022-10-24] MEDS: INSULIN ASPART (NovoLOG) 100 UNIT/ML VIAL SQ SCH ×4 (08:29→20:04)
[2022-10-24] MEDS: FLUoxetine HCL 20 MG CAP PO SCH (08:40)
[2022-10-24] MEDS: lamoTRIgine 25 MG TAB PO SCH ×2 (08:40→20:49)
[2022-10-24] MEDS: ASPIRIN 81 MG PO SCH (08:40)
[2022-10-24] MEDS: ATORVASTATIN 40 MG TAB PO SCH (08:40)
[2022-10-24] MEDS: glipiZIDE 5 MG TAB PO SCH ×2 (08:40→20:48)
[2022-10-24] MEDS: metFORMIN 500 MG TAB PO SCH ×2 (08:40→20:49)
[2022-10-24] MEDS: PANTOPRAZOLE 40 MG TABLET PO SCH (08:40)
[2022-10-24] MEDS: ZINC SULFATE 220 MG CAP PO SCH (08:40)
[2022-10-24] MEDS: CYANOCOBALAMIN 500 MCG TAB PO SCH (08:40)
[2022-10-24] MEDS: CHOLECALCIFEROL 25 MCG (1000 IU) TABLET PO SCH (08:40)
[2022-10-24] MEDS: CHOLECALCIFEROL 125 MCG (5000 IU) TABLET PO SCH (08:41)
[2022-10-24] MEDS: ASCORBIC ACID 500 MG TAB PO SCH (08:41)
[2022-10-24] MEDS: FENOFIBRATE 160 MG TAB PO SCH (08:42)
[2022-10-24] MEDS: amLODIPine 10 MG TAB PO SCH (08:44)
[2022-10-24] MEDS: hydroCHLOROthiazide 12.5 MG CAP PO SCH (08:44)
[2022-10-24] MEDS: METOPROLOL TARTRATE 50 MG TAB PO SCH (08:44)
[2022-10-24] MEDS: lisinopriL 20 MG TAB PO SCH ×2 (08:44→20:49)
--- NOTE | 2022-10-24 12:25 | P.PN ---
Progress Note - Text Progress Note Date: 10/24/22 Interval History: Patient was seen wandering the hallways and was directable and agreeable to speak with magnetic tape typewriter operator in the office. Currently, the patient reports that he is doing well. He states that he is having a significant decrease in his suicidal thoughts. He reports that he is able to sleep well last night. He reports no current suicidal or homicidal ideation, intention, and/or plan. He reports no auditory or visual hallucinations. He continues to express anxiety regarding his home situation and the difficulty navigating making his and his mother happy. He has been adherent with his medications and is not reporting any significant side effects. He does report that he has low blood pressure and that is new for him. He is agreeable to decreasing his metoprolol. Mental Status Exam: General Appearance: Patient appears to be stated age is alert, directable, and cooperative. Behavior: Patient is calmly seated without any agitated behavior. Speech: Patient's speech is fluent and nonpressured. Mood/Affect: Mood is "feeling a little better," affect is congruent and constricted. Suicidality/Homicidality: Patient denies having any suicidal or homicidal ideation intent or plan. Perceptions: Patient denies any visual hallucinations and denies any auditory hallucinations Though content/process: There is no evidence of any delusional thought content and thought process is linear and goal-directed. Memory and concentration: AOX3, grossly intact for the purposes of this session Judgment and insight: Improving mildly Vital Signs Temp 97.5 F L 10/24/22 06:37 Pulse 91 10/24/22 08:50 Resp 16 10/24/22 06:37 BP 85/54 10/24/22 08:50 Pulse Ox 98 10/22/22 06:42 FiO2 Laboratory Results - Last 24 Hours 10/23/22 10/23/22 10/23/22 12:50 17:41 20:09 POC Glucose (mg/dL) 99 124 H 245 H POC Glu Consumer Marketing Analyst ID Barby Mckeon Garrett Hadwin, Garrett 10/23/22 10/24/22 20:11 07:44 POC Glucose (mg/dL) 256 H 139 H POC Glu Consumer Marketing Analyst ID Kev Campos Desiree Assessment Bipolar 1 disorder, mixed episode Obsessive-compulsive disorder Nicotine dependence Plan: -Patient continues to meet criteria for inpatient psychiatric admission for symptom stabilization and safety. Patient has signed adult voluntary form and medication consent and was placed in patient's chart. -Medications: Continue Seroquel 400 mg by mouth at bedtime for mood stabilization/insomnia Continue trazodone 100 mg by mouth at bedtime for insomnia Continue Lamictal 25 mg by mouth twice daily for mood stabilization Continue Prozac 40 mg by mouth daily for OCD We will decrease his metoprolol to 25 mg by mouth twice due to hypotension -When necessary Ativan for agitation/aggression. -NRT - nicotine patch -SW on board for discharge planning. Encouraged the patient to participate in milieu.
[2022-10-24 13:01] LABS: Glucose,Whole Blood 124 mg/dL (70-110)
[2022-10-24 17:26] LABS: Glucose,Whole Blood 136 mg/dL (70-110)
[2022-10-24 19:55] LABS: Glucose,Whole Blood 183 mg/dL (70-110)
[2022-10-24] MEDS: traZODone HCL 50 MG TAB PO SCH (20:50)
[2022-10-24] MEDS: QUEtiapine 400 MG TAB PO SCH (20:51)
[2022-10-24] MEDS: METOPROLOL TARTRATE 25 MG TAB PO SCH (21:00)
[2022-10-25] MEDS: LORazepam 1 MG TAB PO PRN (06:00)
[2022-10-25] MEDS: PANTOPRAZOLE 40 MG TABLET PO SCH (06:04)
[2022-10-25] MEDS: METOPROLOL TARTRATE 25 MG TAB PO SCH ×2 (06:04→21:07)
[2022-10-25 07:52] LABS: Glucose,Whole Blood 121 mg/dL (70-110)
[2022-10-25] MEDS: INSULIN ASPART (NovoLOG) 100 UNIT/ML VIAL SQ SCH ×4 (08:17→20:20)
[2022-10-25] MEDS: hydroCHLOROthiazide 12.5 MG CAP PO SCH (08:59)
[2022-10-25] MEDS: ASCORBIC ACID 500 MG TAB PO SCH (08:59)
[2022-10-25] MEDS: amLODIPine 10 MG TAB PO SCH (08:59)
[2022-10-25] MEDS: lisinopriL 20 MG TAB PO SCH ×2 (08:59→21:06)
[2022-10-25] MEDS: metFORMIN 500 MG TAB PO SCH ×2 (08:59→21:08)
[2022-10-25] MEDS: lamoTRIgine 25 MG TAB PO SCH ×2 (08:59→21:08)
[2022-10-25] MEDS: FLUoxetine HCL 20 MG CAP PO SCH (09:00)
[2022-10-25] MEDS: ASPIRIN 81 MG PO SCH (09:00)
[2022-10-25] MEDS: CHOLECALCIFEROL 25 MCG (1000 IU) TABLET PO SCH (09:00)
[2022-10-25] MEDS: ATORVASTATIN 40 MG TAB PO SCH (09:00)
[2022-10-25] MEDS: CHOLECALCIFEROL 125 MCG (5000 IU) TABLET PO SCH (09:00)
[2022-10-25] MEDS: FENOFIBRATE 160 MG TAB PO SCH (09:00)
[2022-10-25] MEDS: ZINC SULFATE 220 MG CAP PO SCH (09:00)
[2022-10-25] MEDS: glipiZIDE 5 MG TAB PO SCH ×2 (09:00→21:08)
[2022-10-25] MEDS: CYANOCOBALAMIN 500 MCG TAB PO SCH (09:00)
[2022-10-25 12:40] LABS: Glucose,Whole Blood 144 mg/dL (70-110)
--- NOTE | 2022-10-25 13:28 | P.PN ---
Progress Note - Text Progress Note Date: 10/25/22 Interval History: Patient was seen wandering the hallways and was directable and agreeable to speak with va underwriter. Patient states that he has been feeling somewhat dizzy and is concerned about his lower blood pressure with the current medication regimen. He states that his sleep was better with Zyprexa. He states that he has not been sleeping well even with Seroquel. Patient reports racing thoughts in addition. He states that he did well previously on Depakote but had hyponatremia. He cannot recall how he did on lithium but cannot recall any side effects to the lithium either. He reports no current suicidal or homicidal ideation, intention, and/or plan. He reports no auditory or visual hallucinations. He denies other side effects and has been compliant with medication. Mental Status Exam: General Appearance: Patient appears to be stated age is alert, directable, and cooperative. Behavior: Patient is calmly seated without any agitated behavior. Speech: Patient's speech is fluent and nonpressured. Mood/Affect: Mood is "feeling a little better," affect is congruent and constricted. Suicidality/Homicidality: Patient denies having any suicidal or homicidal ideation intent or plan. Perceptions: Patient denies any visual hallucinations and denies any auditory hallucinations Though content/process: There is no evidence of any delusional thought content and thought process is linear and goal-directed. Memory and concentration: AOX3, grossly intact for the purposes of this session Judgment and insight: Improving mildly Vital Signs Temp 97.7 F 10/25/22 06:06 Pulse 92 10/25/22 08:57 Resp 18 10/25/22 06:06 BP 91/57 10/25/22 08:57 Pulse Ox 97 10/25/22 06:06 FiO2 Assessment Bipolar 1 disorder, mixed episode Obsessive-compulsive disorder Nicotine dependence Plan: -Patient continues to meet criteria for inpatient psychiatric admission for symptom stabilization and safety. Patient has signed adult voluntary form and medication consent and was placed in patient's chart. -Medications: Decrease Seroquel to 300 mg by mouth at bedtime due to hypotension Restart Zyprexa 10 mg qHS for mood stabilization Continue trazodone 100 mg by mouth at bedtime for insomnia Continue Lamictal 25 mg by mouth twice daily for mood stabilization. Would consider [place] Continue Prozac 40 mg by mouth daily for OCD -When necessary Ativan for agitation/aggression. -NRT - nicotine patch -SW on board for discharge planning. Encouraged the patient to participate in milieu.
[2022-10-25 17:57] LABS: Glucose,Whole Blood 130 mg/dL (70-110)
[2022-10-25 19:49] LABS: Glucose,Whole Blood 173 mg/dL (70-110)
[2022-10-25] MEDS: QUEtiapine 100 MG TAB PO SCH (21:07)
[2022-10-25] MEDS: OLANZapine 10 MG TAB PO SCH (21:08)
[2022-10-25] MEDS: traZODone HCL 50 MG TAB PO SCH (21:08)
[2022-10-26 07:58] LABS: Glucose,Whole Blood 168 mg/dL (70-110)
[2022-10-26] MEDS: INSULIN ASPART (NovoLOG) 100 UNIT/ML VIAL SQ SCH ×4 (08:16→20:16)
[2022-10-26] MEDS: CYANOCOBALAMIN 500 MCG TAB PO SCH ×2 (08:18→08:19)
[2022-10-26] MEDS: hydroCHLOROthiazide 12.5 MG CAP PO SCH (08:18)
[2022-10-26] MEDS: FENOFIBRATE 160 MG TAB PO SCH (08:18)
[2022-10-26] MEDS: ATORVASTATIN 40 MG TAB PO SCH (08:18)
[2022-10-26] MEDS: glipiZIDE 5 MG TAB PO SCH ×2 (08:18→21:10)
[2022-10-26] MEDS: CHOLECALCIFEROL 125 MCG (5000 IU) TABLET PO SCH (08:18)
[2022-10-26] MEDS: ASCORBIC ACID 500 MG TAB PO SCH (08:18)
[2022-10-26] MEDS: FLUoxetine HCL 20 MG CAP PO SCH (08:18)
[2022-10-26] MEDS: amLODIPine 10 MG TAB PO SCH (08:18)
[2022-10-26] MEDS: ZINC SULFATE 220 MG CAP PO SCH (08:18)
[2022-10-26] MEDS: ASPIRIN 81 MG PO SCH (08:19)
[2022-10-26] MEDS: metFORMIN 500 MG TAB PO SCH ×2 (08:19→21:09)
[2022-10-26] MEDS: lamoTRIgine 25 MG TAB PO SCH ×2 (08:19→21:09)
[2022-10-26] MEDS: lisinopriL 20 MG TAB PO SCH ×2 (08:19→21:10)
[2022-10-26] MEDS: METOPROLOL TARTRATE 25 MG TAB PO SCH ×2 (08:19→21:10)
[2022-10-26] MEDS: CHOLECALCIFEROL 25 MCG (1000 IU) TABLET PO SCH (08:20)
[2022-10-26] MEDS: PANTOPRAZOLE 40 MG TABLET PO SCH (08:20)
[2022-10-26 12:53] LABS: Glucose,Whole Blood 85 mg/dL (70-110)
--- NOTE | 2022-10-26 14:22 | P.PN ---
Progress Note - Text Progress Note Date: 10/26/22 Interval History: Patient was seen bedside. Patient reports doing significantly better since decreased dose of Seroquel. He states that he slept well with Zyprexa 10 mg last night. He says that he is no longer experiencing dizziness. However, patient reports that he had experienced dizziness at home along before he was started on Seroquel. He says that he does not measure his blood pressure at home and does not measure blood sugars at home because this causes him to be more anxious. He was encouraged to do so. He says that the racing thoughts have improved and that his mood is "much better". Patient was encouraged to participate in groups. He reports fair appetite and energy this morning. He states that after lunch, he has been feeling more tired today. He reports no current suicidal or homicidal ideation, intention, and/or plan. He reports no auditory or visual hallucinations. He denies other side effects and has been compliant with medication. Mental Status Exam: General Appearance: Patient appears to be stated age is alert, directable, and cooperative. Behavior: Patient is calmly seated without any agitated behavior. Speech: Patient's speech is fluent and nonpressured. Mood/Affect: Mood is "much better" affect is congruent and constricted. Suicidality/Homicidality: Patient denies having any suicidal or homicidal ideation intent or plan. Perceptions: Patient denies any visual hallucinations and denies any auditory hallucinations Though content/process: There is no evidence of any delusional thought content and thought process is linear and goal-directed. Memory and concentration: AOX3, grossly intact for the purposes of this session Judgment and insight: Improving mildly Vital Signs Temp 97.1 F L 10/26/22 10:37 Pulse 105 H 10/26/22 10:37 Resp 18 10/25/22 06:06 BP 102/62 10/26/22 10:37 Pulse Ox 97 10/25/22 06:06 FiO2 Intake & Output 10/25/22 10/26/22 10/26/22 18:59 06:59 18:59 Weight 85.7 kg Assessment Bipolar 1 disorder, mixed episode Obsessive-compulsive disorder Nicotine dependence Plan: -Patient continues to meet criteria for inpatient psychiatric admission for symptom stabilization and safety. Patient has signed adult voluntary form and medication consent and was placed in patient's chart. -Medications: Continue Seroquel 300 mg by mouth at bedtime. Monitoring for hypotension Continue Zyprexa 10 mg qHS for mood stabilization. Patient prefers Zyprexa to the Seroquel at this time. Might benefit from supratherapeutic dose of Zyprexa Continue trazodone 100 mg by mouth at bedtime for insomnia Continue Lamictal 25 mg by mouth twice daily for mood stabilization. Would consider [place] Continue Prozac 40 mg by mouth daily for OCD Will decrease Norvac to 5 mg today to improve BP -When necessary Ativan for agitation/aggression. -NRT - nicotine patch -SW on board for discharge planning. Encouraged the patient to participate in milieu.
[2022-10-26 17:49] LABS: Glucose,Whole Blood 105 mg/dL (70-110)
[2022-10-26 20:15] LABS: Glucose,Whole Blood 208 mg/dL (70-110)
[2022-10-26] MEDS: traZODone HCL 50 MG TAB PO SCH (21:09)
[2022-10-26] MEDS: OLANZapine 10 MG TAB PO SCH (21:09)
[2022-10-26] MEDS: QUEtiapine 100 MG TAB PO SCH (21:10)
[2022-10-27 07:56] LABS: Glucose,Whole Blood 156 mg/dL (70-110)
[2022-10-27] MEDS: INSULIN ASPART (NovoLOG) 100 UNIT/ML VIAL SQ SCH ×3 (08:15→17:52)
[2022-10-27] MEDS: PANTOPRAZOLE 40 MG TABLET PO SCH (08:16)
[2022-10-27] MEDS: ASCORBIC ACID 500 MG TAB PO SCH (08:52)
[2022-10-27] MEDS: CHOLECALCIFEROL 25 MCG (1000 IU) TABLET PO SCH (08:52)
[2022-10-27] MEDS: ASPIRIN 81 MG PO SCH (08:52)
[2022-10-27] MEDS: FLUoxetine HCL 20 MG CAP PO SCH (08:52)
[2022-10-27] MEDS: ATORVASTATIN 40 MG TAB PO SCH (08:52)
[2022-10-27] MEDS: hydroCHLOROthiazide 12.5 MG CAP PO SCH (08:53)
[2022-10-27] MEDS: CHOLECALCIFEROL 125 MCG (5000 IU) TABLET PO SCH (08:53)
[2022-10-27] MEDS: glipiZIDE 5 MG TAB PO SCH (08:53)
[2022-10-27] MEDS: FENOFIBRATE 160 MG TAB PO SCH (08:53)
[2022-10-27] MEDS: metFORMIN 500 MG TAB PO SCH (08:55)
[2022-10-27] MEDS: lamoTRIgine 25 MG TAB PO SCH (08:55)
[2022-10-27] MEDS: ZINC SULFATE 220 MG CAP PO SCH (08:55)
[2022-10-27] MEDS: lisinopriL 20 MG TAB PO SCH (08:55)
[2022-10-27] MEDS: METOPROLOL TARTRATE 25 MG TAB PO SCH (08:55)
[2022-10-27] MEDS ORDERED: amLODIPine 5 MG TAB PO SCH (09:00)
--- NOTE | 2022-10-27 10:03 | P.DS ---
Providers Date of admission: 10/20/22 21:53 Attending physician: Neville José MD Consults: 10/20/22 22:10 Consult Physician Routine Consulting Provider: [facility] Consult Reason/Comments: H&P and medical Do you want consulting provider notified?: Yes Primary care physician: Chadd Graves - Discharge Diagnosis(es) (1) Bipolar disorder with current episode depressed Current Visit: Yes Status: Chronic Priority: Medium (2) Benzodiazepine withdrawal Current Visit: Yes Status: Acute Priority: Medium (3) Family distress Current Visit: Yes Status: Chronic Priority: Low (4) Diabetes mellitus Current Visit: Yes Status: Chronic Priority: Medium (5) Hypertension Current Visit: Yes Status: Chronic Priority: Medium (6) Hypotension Current Visit: Yes Status: Acute Priority: Low (7) Hyperlipidemia Current Visit: Yes Status: Chronic Priority: Medium (8) Asthma Current Visit: Yes Status: Chronic Priority: Medium (9) Tobacco use Current Visit: Yes Status: Chronic Priority: Medium (10) Suicidal ideation Current Visit: Yes Status: Resolved Hospital Course: Brendon is a 52-year-old male with multiple medical problems (diabetes mellitus type 2, hypertension, hyperlipidemia, and asthma) who presented to the ED with complaints of increasing depression and suicidal ideation. He attributes the increased depression to family stress and abrupt discontinuation of Klonopin. He described becoming distressed by negative comments by his and mother. He "ran out" of Klonopin in September and has an appointment at [facility] with psychiatrist on October 30. His primary physician deferred prescription of Klonopin to the psychiatrist. He described chronic feelings depression and recurrent thoughts of suicide. He denied that he had been experiencing intent or plan. He felt overwhelmed by his medication issues as well as conflict with his family. He talked about managing the stress and withdrawal by different activities to home. His past history is significant OCD and bipolar disorder. He's been treated with multiple medications through [facility]. He reported that this is his seventh inpatient psychiatric hospitalization. His last admission was in [place] in 2007. He had one prior suicide attempt by overdose in 1999. We admitted him to the psychiatric unit voluntarily under the care of Dr. Edda Bingham. He received a comprehensive biopsychosocial assessment. The consulting psychiatrist completed the initial physical exam and medical history and recommended to continue his outpatient medications including lisinopril, Lopressor, hydrochlorothiazide, glipizide, Norvasc, metformin and Crestor. We initially discontinued his outpatient prescription of Zyprexa and prescribed 200 mg of Seroquel at night for sleep and mood stabilization. We continued Prozac 2040 mg daily for depression and OCD. We started Lamictal 25 mg daily and titrated to 25 mg twice a day for the treatment of bipolar depression. After we increased the Seroquel to 400 mg to patient complains of lightheadedness and expressed concern about his low blood pressure. The covering psychiatrist decrease his Seroquel and restart him on Zyprexa. Time of discharge she remained concerned about his low blood pressure and again stated that he preferred to continue with Prozac instead of Seroquel. He also requested a temporary prescription of clonazepam until he meets with his psychiatrist in [facility]. He reports having taken this medicine for several years and has been unable to sleep without medication. At time of discharge she presented as a casually groomed 52-year-old male who was missing his front teeth. He made eye contact and sensory interview. He had no abnormal involuntary movements. Speech was clear, organized and focused. His affect was bright and he smiled during the interview. He denied experiencing suicidal ideation or wishes. He denied feeling hopeless, helpless or worthless. He continues to obsess over family issues. There are no psychotic symptoms. His thinking was concrete. Patient Condition at Discharge: Good Plan - Discharge Summary Discharge Rx Participant: Yes New Discharge Prescriptions: New traZODone HCL [Desyrel] 100 mg PO HS #30 tab lamoTRIgine [LaMICtal] 25 mg PO BID #60 tab Metoprolol Tartrate [Lopressor] 25 mg PO BID #60 tab Ibuprofen [Motrin] 600 mg PO Q6HR PRN tab PRN Reason: Moderate Pain (Scale 4 To 6) Aspirin 81 mg PO DAILY tab Fenofibrate [Lofibra] 160 mg PO DAILY #30 tab amLODIPine [Norvasc] 5 mg PO DAILY #30 tab OLANZapine [ZyPREXA] 10 mg PO HS #30 tab Continue lisinopriL [Zestril] 40 mg PO BID Ascorbic Acid [Vitamin C] 1,000 mg PO DAILY Rosuvastatin [Crestor] 20 mg PO DAILY FLUoxetine HCL [PROzac] 40 mg PO DAILY Cholecalciferol [Vitamin D3 (125 Mcg = 5000 Iu)] 375 mcg PO DAILY clonazePAM [KlonoPIN] 1 mg PO HS #14 tab Cyanocobalamin [Vitamin B-12] 500 mcg PO DAILY Zinc Gluconate [Zinc] 50 mg PO DAILY hydroCHLOROthiazide 12.5 mg PO DAILY glipiZIDE [Glucotrol XL] 10 mg PO DAILY metFORMIN HCL [Glucophage] 1,000 mg PO BID Omeprazole [PriLOSEC] 40 mg PO DAILY Cholecalciferol [Vitamin D3 (25 Mcg = 1000 Iu)] 25 mcg PO DAILY Discontinued OLANZapine [ZyPREXA] 20 mg PO HS Metoprolol Tartrate [Lopressor] 50 mg PO BID amLODIPine [Norvasc] 10 mg PO DAILY Fenofibrate Nanocrystallized [Fenofibrate] 145 mg PO DAILY Discharge Medication List Ascorbic Acid [Vitamin C] 1,000 mg PO DAILY 10/20/22 [History] Cholecalciferol [Vitamin D3 (125 Mcg = 5000 Iu)] 375 mcg PO DAILY 10/20/22 [History] Cholecalciferol [Vitamin D3 (25 Mcg = 1000 Iu)] 25 mcg PO DAILY 10/20/22 [History] Cyanocobalamin [Vitamin B-12] 500 mcg PO DAILY 10/20/22 [History] FLUoxetine HCL [PROzac] 40 mg PO DAILY 10/20/22 [History] Omeprazole [PriLOSEC] 40 mg PO DAILY 10/20/22 [History] Rosuvastatin [Crestor] 20 mg PO DAILY 10/20/22 [History] Zinc Gluconate [Zinc] 50 mg PO DAILY 10/20/22 [History] glipiZIDE [Glucotrol XL] 10 mg PO DAILY 10/20/22 [History] hydroCHLOROthiazide 12.5 mg PO DAILY 10/20/22 [History] lisinopriL [Zestril] 40 mg PO BID 10/20/22 [History] metFORMIN HCL [Glucophage] 1,000 mg PO BID 10/20/22 [History] Aspirin 81 mg PO DAILY tab 10/27/22 [Rx] Fenofibrate [Lofibra] 160 mg PO DAILY #30 tab 10/27/22 [Rx] Ibuprofen [Motrin] 600 mg PO Q6HR PRN tab 10/27/22 [Rx] Metoprolol Tartrate [Lopressor] 25 mg PO BID #60 tab 10/27/22 [Rx] OLANZapine [ZyPREXA] 10 mg PO HS #30 tab 10/27/22 [Rx] amLODIPine [Norvasc] 5 mg PO DAILY #30 tab 10/27/22 [Rx] clonazePAM [KlonoPIN] 1 mg PO HS #14 tab 10/27/22 [Rx] lamoTRIgine [LaMICtal] 25 mg PO BID #60 tab 10/27/22 [Rx] traZODone HCL [Desyrel] 100 mg PO HS #30 tab 10/27/22 [Rx] Follow up Appointment(s)/Referral(s): Chadd Root MD [Primary Care Provider] - 1-2 days Activity/Diet/Wound Care/Special Instructions: Avoid the use of street drugs and alcohol. Take all medications as prescribed. When you are in need of refills on your medications, please contact your medical provider and/or outpatient psychiatrist to have this done. Please go to scheduled outpatient appointments for aftercare treatment. If symptoms return or become worse, call the crisis line at and/or go to the nearest emergency room for evaluation. Discharge Disposition: HOME SELF-CARE
[2022-10-27 11:02] VITALS: BP 122/65; PULSE 93; RESP 17; TEMP 97.5
[2022-10-27 13:08] LABS: Glucose,Whole Blood 86 mg/dL (70-110)
[2022-10-27] MEDS: LORazepam 1 MG TAB PO PRN (15:05)
[2022-10-27 17:48] LABS: Glucose,Whole Blood 146 mg/dL (70-110)
== END 2022-10-27 18:56 | disposition home or self-care (01) | DRG 885 ==
LOC: SUPCPDRO 15:11 → EC 15:11 → 3MHU 21:53
PROVIDERS: ADMIT Psychiatry & Neurology Psychiatry; ATTEND Psychiatry & Neurology Psychiatry
DX: F31.30 Bipolar disorder, current episode depressed, mild or moderate severity, unspecified (principal); F13.239 Sedative, hypnotic or anxiolytic dependence with withdrawal, unspecified; R45.851 Suicidal ideations; F17.210 Nicotine dependence, cigarettes, uncomplicated; F42.9 Obsessive-compulsive disorder, unspecified; Z79.84 Long term (current) use of oral hypoglycemic drugs; Z79.899 Other long term (current) drug therapy; Z91.51 Personal history of suicidal behavior; Z20.822 Contact with and (suspected) exposure to COVID-19
CPT/HCPCS: 36415; 80053; 80061; 80306; 81003; 82075; 83036; 84443; 85025; 87635; 99285

== ENCOUNTER 2023-12-02 13:41 | Inpatient (IN) | payer MEDICARE, MEDICAID ==
--- NOTE | 2023-12-02 14:29 | ED ---
Psych HPI - General Source: patient, RN notes reviewed Mode of arrival: ambulatory Limitations: no limitations <Carlos Turner - Last Filed: 12/02/23 14:26> <Brendon Andrea - Last Filed: 12/02/23 16:55> - General Chief Complaint: Psychiatric Symptoms Stated Complaint: Petition Time Seen by Provider: 12/02/23 13:53 - History of Present Illness Initial Comments: 53-year-old male presents emergency department with police for psychiatric evaluation. Patient was picked up on a court order petition by police and brought here for evaluation. Patient states that he is not suicidal homicidal he reportedly has been having bizarre, delusional thought process. Patient has no physical complaints does admit to marijuana use, alcohol use occasionally. Denies being suicidal denies being homicidal (Carlos Turner) - Related Data Home Medications Medication Instructions Recorded Confirmed FLUoxetine HCL [PROzac] 40 mg PO DAILY 10/20/22 12/02/23 Zinc Gluconate [Zinc] 50 mg PO DAILY 10/20/22 12/02/23 Albuterol Sulfate [Ventolin HFA] 1 - 2 puff INHALATION RT-Q4H PRN 12/02/23 12/02/23 Aspirin 81 mg PO BID 12/02/23 12/02/23 Multivitamins, Thera [Multivitamin 1 tab PO DAILY 12/02/23 12/02/23 (formulary)] Vitamin B-12(Unknown Dose) 1 tab PO DAILY 12/02/23 12/02/23 Vitamin D3(Unknown Dose) 1 tab PO DAILY 12/02/23 12/02/23 traZODone HCL [Desyrel] 50 mg PO HS 12/02/23 12/02/23 Previous Rx's Medication Instructions Recorded Metoprolol Tartrate [Lopressor] 25 mg PO BID #60 tab 10/27/22 clonazePAM [KlonoPIN] 1 mg PO HS #14 tab 10/27/22 Allergies Allergy/AdvReac Type Severity Reaction Status Date / Time paliperidone [From Invega] Allergy Itching/Increased Verified 12/02/23 15:59 Agitation Penicillins Allergy Diarrhea Verified 12/02/23 15:59 Review of Systems ROS Other: All systems not noted in ROS Statement are negative. <Carlos Turner - Last Filed: 12/02/23 14:26> ROS Other: All systems not noted in ROS Statement are negative. <EmreBrendon Markus - Last Filed: 12/02/23 16:55> ROS Statement: Those systems with pertinent positive or pertinent negative responses have been documented in the HPI. Past Medical History Past Medical History: Asthma, Diabetes Mellitus, Hypertension Additional Past Medical History / Comment(s): diverticulitis History of Any Multi-Drug Resistant Organisms: None Reported Past Surgical History: Tonsillectomy Past Anesthesia/Blood Transfusion Reactions: No Reported Reaction Past Psychological History: Anxiety, Bipolar Smoking Status: Current every day smoker Past Alcohol Use History: Occasional Past Drug Use History: None Reported - Past Family History Father History Unknown: Yes Family Medical History: Hypertension <Carlos Turner - Last Filed: 12/02/23 14:26> General Exam Limitations: no limitations General appearance: alert, in no apparent distress Head exam: Present: atraumatic, normocephalic, normal inspection Eye exam: Present: normal appearance, PERRL, EOMI. Absent: scleral icterus, conjunctival injection, periorbital swelling ENT exam: Present: normal exam, mucous membranes moist Neck exam: Present: normal inspection. Absent: tenderness, meningismus, lympha denopathy Respiratory exam: Present: normal lung sounds bilaterally. Absent: respiratory distress, wheezes, rales, rhonchi, stridor Cardiovascular Exam: Present: regular rate, normal rhythm, normal heart sounds. Absent: systolic murmur, diastolic murmur, rubs, gallop, clicks GI/Abdominal exam: Present: soft, normal bowel sounds. Absent: distended, tenderness, guarding, rebound, rigid Neurological exam: Present: alert, oriented X3, CN II-XII intact Psychiatric exam: Present: manic Skin exam: Present: warm, dry, intact, normal color. Absent: rash <Carlos Turner M - Last Filed: 12/02/23 14:26> Course Vital Signs 12/02/23 13:44 Temperature 98.2 F Pulse Rate 90 Respiratory 16 Rate Blood Pressure 152/86 O2 Sat by Pulse 97 Oximetry Medical Decision Making <JayceeBrendon montero - Last Filed: 12/02/23 16:55> - Medical Decision Making Was pt. sent in by a medical professional or institution (, PA, SENIOR QA TESTER, urgent care, hospital, or longterm...) When possible be specific @ -No Did you speak to anyone other than the patient for history (EMS, parent, family, police, friend...)? What history was obtained from this source @ -No Did you review nursing and triage notes (agree or disagree)? Why? @ -I reviewed and agree with nursing and triage notes Were old charts reviewed (outside hosp., previous admission, EMS record, old EKG, old radiological studies, urgent care reports/EKG's, longterm records)? Report findings @ -No old charts were reviewed Differential Mental Health Depression, anxiety, bipolar, psychosis, schizophrenia, borderline personality, situational depression, adjustment disorder, behavioral disorder, brain tumor, malingering, substance abuse, encephalopathy, medication reaction, dementia, hypothyroidism, degenerative neurologic disorder, lupus.... This is not meant to be all-inclusive list EKG interpreted by me (3pts min.). @ -As above X-rays interpreted by me (1pt min.). @ -None done CT interpreted by me (1pt min.). @ -None done U/S interpreted by me (1pt. min.). @ -None done What testing was considered but not performed or refused? (CT, X-rays, U/S, labs)? Why? @ -None What meds were considered but not given or refused? Why? @ -None Did you discuss the management of the patient with other professionals (professionals i.e. , PA, SENIOR QA TESTER, lab, RT, psych nurse, child protective services social worker, correctional substance abuse counselor, teacher, environmental conservation officer, embedded case manager)? Give summary @ -No Was smoking cessation discussed for >3mins.? @ -No Was critical care preformed (if so, how long)? @ -No Were there social determinants of health that impacted care today? How? (Homelessness, low income, unemployed, alcoholism, drug addiction, transportation, low edu. Level, literacy, decrease access to med. care, half-way, rehab)? @ -No Was there de-escalation of care discussed even if they declined (Discuss DNR or withdrawal of care, Hospice)? DNR status @ -No What co-morbidities impacted this encounter? (DM, HTN, Smoking, COPD, CAD, Cancer, CVA, ARF, Chemo, Hep., AIDS, mental health diagnosis, sleep apnea, morbid obesity)? @ -None Was patient admitted / discharged? Hospital course, mention meds given and route, prescriptions, significant lab abnormalities, going to OR and other pertinent info. @ -[Patient had been medically cleared and evaluated by EPS and was felt to require inpatient psychiatric care. He will be admitted to this institution. Undiagnosed new problem with uncertain prognosis? @ -No Drug Therapy requiring intensive monitoring for toxicity (Heparin, Nitro, Insulin, Cardizem)? @ -No Were any procedures done? @ -No Diagnosis/symptom? @ -Acute psychosis Acute, or Chronic, or Acute on Chronic? @ -acute Uncomplicated (without systemic symptoms) or Complicated (systemic symptoms)? @ -Default Side effects of treatment? @ -No Exacerbation, Progression, or Severe Exacerbation? @ -No Poses a threat to life or bodily function? How? (Chest pain, [place], [place], pneumonia, PE, COPD, DKA, ARF, appy, cholecystitis, CVA, Diverticulitis, Homicidal, Suicidal, threat to staff... and all critical care pts) @ -[yes, mental health, acute psychosis (Brendon Andrea) - Lab Data Lab Results 12/02/23 Range/Units 14:49 Urine Opiates Screen Not Detected (NotDetected) Ur Oxycodone Screen Not Detected (NotDetected) Urine Methadone Screen Not Detected (NotDetected) Ur Barbiturates Screen Not Detected (NotDetected) U Tricyclic Antidepress Not Detected (NotDetected) Ur Phencyclidine Scrn Not Detected (NotDetected) Ur Amphetamines Screen Not Detected (NotDetected) U Methamphetamines Scrn Not Detected (NotDetected) U Benzodiazepines Scrn Not Detected (NotDetected) Urine Cocaine Screen Not Detected (NotDetected) U Marijuana (THC) Screen Not Detected (NotDetected) Disposition <Carlos Turner - Last Filed: 12/02/23 14:26> Is patient prescribed a controlled substance at d/c from ED?: No Time of Disposition: 16:55 <Brendon Andrea - Last Filed: 12/02/23 16:55> Clinical Impression: Acute psychosis Disposition: ADMITTED IP TO THIS HOSP Condition: Stable Referrals: None,Stated [Primary Care Provider] - 1-2 days
[2023-12-02 15:27] LABS: Amphetamine Screen,Urine Not Detected (NotDetected); Barbiturate Screen,Urine Not Detected (NotDetected); Benzodiazepines Screen,Urine Not Detected (NotDetected); Cocaine Screen,Urine Not Detected (NotDetected); Methadone Screen, Urine Not Detected (NotDetected); Opiate Screen,Urine Not Detected (NotDetected); Oxycodone Screen, Urine Not Detected (NotDetected); Phencyclidine Screen,Urine Not Detected (NotDetected); Tricyclic Antidepressant,Urine Not Detected (NotDetected); Urn Cannabinoid Scrn Not Detected (NotDetected)
[2023-12-02] MEDS: clonazePAM 0.5 MG TAB PO STA (17:19)
[2023-12-02 21:36] LABS: Glucose,Whole Blood 138 mg/dL (70-110)
[2023-12-03] MEDS ORDERED: MAGNESIUM HYDROXIDE 2,400 MG/30 ML CUP PO PRN (00:49)
[2023-12-03] MEDS ORDERED: haloperidoL 5 MG TAB PO PRN (00:52)
[2023-12-03] MEDS ORDERED: HALOPERIDOL LACTATE 5 MG/ML 1 ML VIAL IM PRN (00:52)
[2023-12-03] MEDS: traZODone HCL 50 MG TAB PO SCH (01:35)
[2023-12-03] MEDS: clonazePAM 1 MG TAB PO SCH (01:35)
[2023-12-03 07:57] LABS: Glucose,Whole Blood 166 mg/dL (70-110)
[2023-12-03] MEDS: NICOTINE 14MG/24HR PATCH TRANSDERM SCH (09:21)
[2023-12-03] MEDS: ACETAMINOPHEN TAB 325 MG TAB PO PRN (12:41)
[2023-12-03 12:45] LABS: Glucose,Whole Blood 122 mg/dL (70-110)
[2023-12-03] MEDS: IBUPROFEN 600 MG TAB PO PRN (13:30)
--- NOTE | 2023-12-03 14:43 | P.HP ---
Psychiatric H&P - . H&P Date: 12/03/23 History & Physical: Allergies Allergy/AdvReac Type Severity Reaction Status Date / Time paliperidone [From Invega] Allergy Itching/Increased Verified 12/02/23 15:59 Agitation Penicillins Allergy Diarrhea Verified 12/02/23 15:59 Vital Signs Temp 97.9 F 12/03/23 02:15 Pulse 84 12/03/23 02:15 Resp 18 12/03/23 02:15 BP 143/87 12/03/23 02:15 Pulse Ox 96 12/03/23 02:15 FiO2 Intake & Output 12/02/23 12/03/23 12/03/23 18:59 06:59 18:59 Weight 78.471 kg 72 kg Laboratory Last Values POC Glucose (mg/dL) 122 mg/dL (70-110) H 12/03/23 12:44 POC Glu Chicken Handler ID Cassandra Sebastian 12/03/23 12:44 Urine Opiates Screen Not Detected (NotDetected) 12/02/23 14:49 Ur Oxycodone Screen Not Detected (NotDetected) 12/02/23 14:49 Urine Methadone Screen Not Detected (NotDetected) 12/02/23 14:49 Ur Barbiturates Screen Not Detected (NotDetected) 12/02/23 14:49 U Tricyclic Antidepress Not Detected (NotDetected) 12/02/23 14:49 Ur Phencyclidine Scrn Not Detected (NotDetected) 12/02/23 14:49 Ur Amphetamines Screen Not Detected (NotDetected) 12/02/23 14:49 U Methamphetamines Scrn Not Detected (NotDetected) 12/02/23 14:49 U Benzodiazepines Scrn Not Detected (NotDetected) 12/02/23 14:49 Urine Cocaine Screen Not Detected (NotDetected) 12/02/23 14:49 U Marijuana (THC) Screen Not Detected (NotDetected) 12/02/23 14:49 SARS-CoV-2 (PCR) Not Detected (Not Detectd) 12/02/23 19:00 12/03/23 14:42 Psychiatric Evaluation Identifying Data: Mr. Pittman is 53 years old, , white male, who lives in [place], [place] Chief Complaint: court ordered History of Psychiatric Illness- The patient noted that he was brought here against his wishes. As per petition, the patient was loud, disruptive, delusional, confused, slurring and rambling. He was non-compliant with medications. It appears that patient has these episodes off and on. The patient noted that he is on Zyprexa 15 mg, Trazodone 50 mg hs, Klonopin 1 mg. The patient was admitted to this hospital in Oct, 2022. He was first hospitalized at age 20. He has had 10 admissions since then. His last admission was in April 2023. The patient that most of the time he has been to the hospital for suicidality. He does not feel suicidal this time. He has been to the out-pt clinics since then off and on. His last visit was last month at [facility]. He wants to move to [facility] because he feels his life is being threatened here. He has been diagnosed with Manic -Depressive, OCD, Panic disorder. The patient thinks he is high functioning autism. The patient experiences symptoms of increased energy, scratching, stuttering, being hyper, arrange thing in order, anxiety, sadness, hopelessness, helplessness, and suicidal thoughts. He is currently having symptoms of decreased concentration, stuttering, tiredness. He denied feeling depressed, hopeless, helpless or suicidal. Past Psychiatric History: As stated above. Past Medication History: Prozac, Invega, Effexor, Abilify, Xanax, Navane, Depakote, Geodon,, Seroquel, Luvox, Effexor, Zoloft. Leading questions: The patient admitted to Depression and Anxiety. Denied SI or HI. Denied symptoms consistent with psychosis Drugs and alcohol history: Marijuana occasionally. Alcohol rarely. Tobacco use: Smokes 25 to 30 cigarettes a day. Past Medical history: None, as per patient. He noted taking antihypertensive and antidiabetic medications in the past. Family History of Psychiatric Disorder: Maternal Aunt and grandmother have Schizophrenia. Mother suffers from Depression and anxiety. Brother has PTSD Social History and Family History: The patient was born and raised in [place], [place]. He finished HS. 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 Orientation times three Dressed and Groomed: Appropriately. Pleasant and cooperative. Psychomotor Activity: Normal. Speech: Normal in tone, quality, and quantity. Mood: Depressed and anxious. Affect: Labile SI or HI: None. Perceptual disturbance: None. Thought Content: No paranoia or other delusional thinking noted. Thought Process: Normal. Cognition: Intact Judgment and Insight: Poor AIMS: Normal Labs: Available labs reviewed. Diagnosis: Bipolar Disorder, OCD Plan and Recommendations: Continue current Medications. Zyprexa 20 mg po HS and Monitor MS and side effects of medications and adjust medications accordingly. Provide supportive psychotherapy and psychoeducation. The patient provided psychoeducation. Te patient provided with substance abuse counselling and advised to attend AA/NA Smoke cessation therapy. The patient to attend [facility]. CBC with Diff, CMP, TSH, Lipid Profile, HbA1c, EKG, Medication Consent with explanation of risk/benefits and side effects: Explained and obtained.
[2023-12-03] MEDS ORDERED: OLANZapine 10 MG VIAL IM PRN (16:55)
[2023-12-03] MEDS: OLANZapine 5 MG TAB PO PRN (16:59)
[2023-12-03 17:48] LABS: Glucose,Whole Blood 131 mg/dL (70-110)
[2023-12-03 19:40] LABS: Glucose,Whole Blood 159 mg/dL (70-110)
[2023-12-03] MEDS: OLANZapine ODT 10 MG TAB PO SCH (21:43)
[2023-12-04 05:43] LABS: Basophils % (A) 1 %; Eosinophils # (A) 0.2 k/uL (0-0.7); Eosinophils % (A) 3 %; HCT 46.3 % (39.0-53.0); HGB 15.1 gm/dL (13.0-17.5); Lymphocytes # (A) 2.6 k/uL (1.0-4.8); Lymphocytes % (A) 37 %; MCH 30.1 pg (25.0-35.0); MCHC 32.6 g/dL (31.0-37.0); MCV 92.5 fL (80.0-100.0); Mean Platelet Volume 7.8; Monocytes # (A) 0.5 k/uL (0-1.0); Monocytes % (A) 7 %; Neutrophils # (A) 3.5 k/uL (1.3-7.7); Neutrophils % (A) 50 %; Platelet Count 223 k/uL (150-450); RBC 5.01 m/uL (4.30-5.90); RDW 12.4 % (11.5-15.5); WBC 6.9 k/uL (3.8-10.6)
[2023-12-04 06:00] LABS: ALT 15 U/L (4-49); AST 18 U/L (17-59); African American GFR (CKD) >90 (>60 ml/min/1.73 sqM); Albumin 3.5 g/dL (3.5-5.0); Alkaline Phosphatase 69 U/L (38-126); Anion Gap 1 mmol/L; Blood Urea Nitrogen 10 mg/dL (9-20); Calcium 9.1 mg/dL (8.4-10.2); Carbon Dioxide 26 mmol/L (22-30); Chloride 109 mmol/L (98-107); Glucose 151 mg/dL (74-99); Non-African American GFR(CKD) >90 (>60 ml/min/1.73 sqM); Potassium 4.3 mmol/L (3.5-5.1); Sodium 136 mmol/L (137-145); Total Bilirubin 0.7 mg/dL (0.2-1.3); Total Protein 5.5 g/dL (6.3-8.2)
[2023-12-04 07:36] LABS: Glucose,Whole Blood 137 mg/dL (70-110)
[2023-12-04 12:30] LABS: Glucose,Whole Blood 130 mg/dL (70-110)
--- NOTE | 2023-12-04 13:14 | P.PN ---
Progress Note - Text Progress Note Date: 12/04/23 Follow-up Mediation Review Chief Complaint: I need my Klonopin Subjective: The patient noted that he took his night time Zyprexa and had a 6-7 hrs sleep. He was requesting for Klonopin. The patient was reinstated on Klonopin after checking with his pharmacy. He was last prescribed on 11/17/23. He used Zyprexa prn twice a since yesterday evening... Discussed with regarding increasing the regular dose to 30mg. The patient agreed and consent. The patient was hyperverbal and talking different paranoid delusional themes. He also became tearful and wanted to have therapy. He wants to see his certified therapist but he felt much relived after verbalizing his issues, most of them were delusional. The patient was provided support and reassurance. The patient has been attending the groups. The participation is limited. The interaction with staff and peers is limited and sometimes confrontational. The patient is compliant with treatment recommendations. Leading questions: The patient admitted to Depression and Anxiety. Denied SI or HI. Denied symptoms consistent with psychosis Sleep and Appetite: Fair. Change in family/ living/job/financial/daily routine: No change. Change in medical condition: No change. Change in medications: No change. Side effects from Medications: None. Objective- MSE: Alert and attentive. Orientation times three. Dressed and Groomed: Appropriately. Pleasant and cooperative. Psychomotor Activity: Normal. Speech: Normal in tone, quality, and over productive. Mood: Depressed. Affect: Labile, irritable. SI or HI: None. Perceptual disturbance: None. Thought Content: Paranoid delusions. No other delusional thinking noted. Thought Process: Loose associations, mild flight of ideas, Cognition: Intact Judgment and Insight: Poor AIMS: Normal. Labs: No new labs. Diagnosis: No change. Plan and Recommendations: Continue current Medications. Increase Zyprexa 30 mg in divided doses. Monitor MS and side effects of medications and adjust medications accordingly. Provide supportive psychotherapy. The patient provided psychoeducation and advised The patient provided Substance abuse counseling. Smoke cessation therapy. The patient to attend kimball activities. CBC with Diff, CMP, TSH, Lipid Profile, HbA1c, EKG, Medication Consent with explanation of risk/benefits and side effects: Explained and obtained.
--- NOTE | 2023-12-04 15:44 | P.CONS ---
History of Present Illness - Reason for Consult Consult date: 12/04/23 - History of Present Illness 53 year old M with PMH of Asthma, DM, Hypertension, Nicotine abuse presents to the ED for mental health concerns. He is admitted to the mental health unit for further management of his symptoms. [facility] has been consulted for medical management of this patient. He reports point tenderness underneath his left mid-clavicle. Also reports athlete foot, requesting medications. Wants STD test. In the ED he underwent extensive evaluation. BP 152/86, HR 90, T 98.2F, RR 16, 97% on RA. POC glucose 122-166 since admission. UDS negative. COVID negative. CBC unremarkable. CMP Na 136, Cl 109, glu 151. A1c 7.3. TSH 0.873. General: non toxic, no distress, appears at stated age Derm: warm, dry Head: atraumatic, normocephalic, symmetric Eyes: EOMI, no lid lag, anicteric sclera Mouth: no lip lesion, mucus membranes moist Cardiovascular: S1S2 reg, no murmur Lungs: CTA bilateral, no rhonchi, no rales , no accessory muscle use Ext: no gross muscle atrophy, no edema, no contractures Neuro: no focal neuro deficits, CN II-XII grossly intact. Psych: Alert, oriented, appropriate affect Based on my assessment of this patient, this patient meets a high complexity level of care. Diabetes mellitus: A1c 8.3 10/2022. A1c 7.3. Accuchecks ACHS. Follow up with PCP for initiation of medication. Hypertension: Metoprolol 25 mg PO BID. Non complaint. Nicotine abuse: Nicotine patch 14 mg/ 24H patch. Athletes foot: Clotrimazole TOP BID. Asthma not in acute exacerbation Acute hep panel, HIV, Syphilis, GC testing ordered. CODE STATUS: FULL CODE DVT Prophylaxis: Early ambulation GI Prophylaxis: Designated medical POA if patient is not able to make medical decisions for themselves: I have reviewed the following system sales consultant notes: ED note, Psyc consult I have reviewed the results of the following tests: As above I have ordered the following tests: As above I have discussed the care of this patient with the following independent historian: I have independently interpreted the following test below: I have discussed the management of this patient with the following physician: Past Medical History Past Medical History: Asthma, Diabetes Mellitus, Hypertension Additional Past Medical History / Comment(s): diverticulitis History of Any Multi-Drug Resistant Organisms: None Reported Past Surgical History: Tonsillectomy Past Anesthesia/Blood Transfusion Reactions: No Reported Reaction Past Psychological History: Anxiety, Bipolar Smoking Status: Current every day smoker Past Alcohol Use History: Occasional Past Drug Use History: None Reported - Past Family History Father History Unknown: Yes Family Medical History: Hypertension Medications and Allergies Home Medications Medication Instructions Recorded Confirmed Type FLUoxetine HCL [PROzac] 40 mg PO DAILY 10/20/22 12/02/23 History Zinc Gluconate [Zinc] 50 mg PO DAILY 10/20/22 12/02/23 History Metoprolol Tartrate [Lopressor] 25 mg PO BID #60 tab 10/27/22 12/02/23 Rx clonazePAM [KlonoPIN] 1 mg PO HS #14 tab 10/27/22 12/02/23 Rx Albuterol Sulfate [Ventolin HFA] 1 - 2 puff INHALATION RT-Q4H PRN 12/02/23 12/02/23 History Aspirin 81 mg PO BID 12/02/23 12/02/23 History Multivitamins, Thera [Multivitamin 1 tab PO DAILY 12/02/23 12/02/23 History (formulary)] Vitamin B-12(Unknown Dose) 1 tab PO DAILY 12/02/23 12/02/23 History Vitamin D3(Unknown Dose) 1 tab PO DAILY 12/02/23 12/02/23 History traZODone HCL [Desyrel] 50 mg PO HS 12/02/23 12/02/23 History Allergies Allergy/AdvReac Type Severity Reaction Status Date / Time paliperidone [From Invega] Allergy Itching/Increased Verified 12/02/23 15:59 Agitation Penicillins Allergy Diarrhea Verified 12/02/23 15:59 Physical Exam Vitals: Vital Signs Temp Pulse Resp BP Pulse Ox 12/04/23 02:00 96.5 F L 114 H 17 117/82 97 Results CBC & Chem 7: 12/04/23 05:20 12/04/23 05:20 Labs: Abnormal Lab Results - Last 24 Hours (Table) 12/03/23 12/03/23 12/04/23 Range/Units 17:46 19:37 05:20 Sodium (137-145) mmol/L Chloride (98-107) mmol/L Glucose (74-99) mg/dL POC Glucose (mg/dL) 131 H 159 H (70-110) mg/dL Hemoglobin A1c 7.3 H (<=6.0) % Total Protein (6.3-8.2) g/dL 12/04/23 12/04/23 12/04/23 Range/Units 05:20 07:34 12:28 Sodium 136 L (137-145) mmol/L Chloride 109 H (98-107) mmol/L Glucose 151 H (74-99) mg/dL POC Glucose (mg/dL) 137 H 130 H (70-110) mg/dL Hemoglobin A1c (<=6.0) % Total Protein 5.5 L (6.3-8.2) g/dL
[2023-12-04 17:42] LABS: Glucose,Whole Blood 133 mg/dL (70-110)
[2023-12-04 19:32] LABS: Glucose,Whole Blood 127 mg/dL (70-110)
[2023-12-04] MEDS: METOPROLOL TARTRATE 25 MG TAB PO SCH (21:08)
[2023-12-04] MEDS: clonazePAM 1 MG TAB PO SCH (21:08)
[2023-12-04] MEDS: OLANZapine ODT 5 MG TAB PO SCH (21:08)
[2023-12-04] MEDS: CLOTRIMAZOLE 1% CREAM 30 GM TUBE TOPICAL SCH (22:08)
[2023-12-05 02:29] LABS: Hepatitis A Antibody IgM Nonreactive (Nonreactive); Hepatitis B Core IgM Nonreactive (Nonreactive); Hepatitis B Surface Antigen Nonreactive (Nonreactive); Hepatitis C IgG Antibody Nonreactive (Nonreactive)
[2023-12-05 07:25] LABS: Glucose,Whole Blood 187 mg/dL (70-110)
--- NOTE | 2023-12-05 12:01 | P.PN ---
Progress Note - Text Progress Note Date: 12/05/23 Interval History: Patient was seen wandering the hallways and was directable and agreeable to shari molina with machine sign writer in the office. Patient has tangential thinking and rambles often during the interview. He displays grandiosity, paranoia, and tangential thought process. He repeatedly states that there is a "cyber scam "that tracks him. He also explains that there is a person working for guardianship in [facility] had is working against him. He says he is highly intelligent and believes that everyone is against him. He states that his mood is "hurt "due to being told he has schizophrenia. He admits to having been on lithium in the past and cannot recall how he was on it. He states when he was on Depakote, it impacted his sodium levels. At this time patient denies any suicidal or homicidal ideations, intent or plan. Patient denies any auditory, visual hallucinations. Patient denies any side effects from the medications and has been compliant with meds. Mental Status Exam: Alert and attentive. Orientation times three. Dressed and Groomed: Appropriately. Pleasant and cooperative. Psychomotor Activity: Normal. Speech: Hyperverbal Mood: Increased range Affect: Labile, irritable. SI or HI: None. Perceptual disturbance: None. Thought Content: Paranoid delusions. Grandiosity Thought Process: Tangential Cognition: Intact Judgment and Insight: Poor Assessment Bipolar disorder with psychotic features OCD Plan: -Patient continues to meet criteria for inpatient psychiatric admission for symptom stabilization and safety. -Medications: Continue Zyprexa 15 mg twice a day, continue Klonopin 1 mg at bedtime, trazodone 50 mg at bedtime Consider augmenting with lithium -When necessary Zyprexa for agitation/aggression. -NRT - nicotine patch -SW on board for discharge planning. Encouraged the patient to participate in milieu.
[2023-12-05 12:49] LABS: Glucose,Whole Blood 129 mg/dL (70-110)
[2023-12-05 17:37] LABS: Glucose,Whole Blood 112 mg/dL (70-110)
[2023-12-05 19:44] LABS: Glucose,Whole Blood 169 mg/dL (70-110)
[2023-12-06 07:44] LABS: Glucose,Whole Blood 137 mg/dL (70-110)
[2023-12-06 12:40] LABS: Glucose,Whole Blood 132 mg/dL (70-110)
--- NOTE | 2023-12-06 14:50 | P.PN ---
Progress Note - Text Progress Note Date: 12/06/23 Interval History: Patient was seen wandering the hallways and was directable and agreeable to shari molina with insurance writer in the office. Patient has tangential thinking and rambles often during the interview. He continues to express concerns about being hospitalized and states that he is tired of the "lies and deceit ". He reports anger at [facility] for getting him hospitalized. However, he does not express any intent to hurt anybody else. When discussing medication, he states that he feels Zyprexa is at a high dose because he has been on lower doses before. He continues to be aware of his diagnosis but gets upset that he was told he has "schizophrenia". The patient is agreeable with being started on lithium for mood. At this time patient denies any suicidal or homicidal ideations, intent or plan. Patient denies any auditory, visual hallucinations. Patient denies any side effects from the medications and has been compliant with meds. Mental Status Exam: Alert and attentive. Orientation times three. Dressed and Groomed: Appropriately. Pleasant and cooperative. Psychomotor Activity: Normal. Speech: Hyperverbal Mood: Increased range, intense, angry Affect: Labile, irritable. SI or HI: None. Perceptual disturbance: None. Thought Content: Paranoid delusions. Thought Process: Tangential Cognition: Intact Judgment and Insight: Poor Assessment Bipolar disorder with psychotic features OCD Plan: -Patient continues to meet criteria for inpatient psychiatric admission for symptom stabilization and safety. -Medications: Continue Zyprexa 15 mg twice a day, continue Klonopin 1 mg at bedtime, trazodone 50 mg at bedtime Start lithium 300 mg BID for mood stabilization -When necessary Zyprexa for agitation/aggression. -NRT - nicotine patch -SW on board for discharge planning. Encouraged the patient to participate in milieu.
[2023-12-06 17:45] LABS: Glucose,Whole Blood 138 mg/dL (70-110)
[2023-12-06 19:48] LABS: Glucose,Whole Blood 172 mg/dL (70-110)
[2023-12-06] MEDS: LITHIUM CARBONATE 300 MG CAP PO SCH (20:46)
[2023-12-07 07:41] LABS: Glucose,Whole Blood 134 mg/dL (70-110)
[2023-12-07 12:46] LABS: Glucose,Whole Blood 145 mg/dL (70-110)
[2023-12-07 17:41] LABS: Glucose,Whole Blood 143 mg/dL (70-110)
[2023-12-07 19:55] LABS: Glucose,Whole Blood 148 mg/dL (70-110)
[2023-12-07] MEDS: LITHIUM CARBONATE 300 MG CAP PO SCH (22:10)
--- NOTE | 2023-12-07 22:24 | P.PN ---
Progress Note - Text Progress Note Date: 12/07/23 Follow-up Mediation Review Chief Complaint: I am feeling good Subjective: The patient noted that he is feeling much better than the time he came in to the hospital. He wants to move out of [facility] and go to [facility]. The patient noted that he has lot of relatives there. He will be asking one of them to take him in. The patient noted that Zyprexa is helping him. He had no new complaints. The patient was provided support and reassurance. Discussed with patient about side effects of Zyprexa in relaton to Diabetes. The patient is well aware of it and noted that he would prefer to saty menatlly well than worry of the Diabetes. The patient weigh the risks and benefits and decided to stay on Zyprexa. The patient is aware of Genetic history too . His grandfather suffered from diabetes. This subject has been discussed in the past with the patient but refused to be weaned off of Zyprexa and consider another alternate medication. The patient has been attending the groups. The participation is limited. The interaction with staff and peers is limited and sometimes confrontational. The patient is compliant with treatment recommendations. Leading questions: The patient admitted to Depression and Anxiety. Denied SI or HI. Denied symptoms consistent with psychosis Sleep and Appetite: Good. Change in family/ living/job/financial/daily routine: the patient wants to [facility]. Change in medical condition: No change. Change in medications: No change. Side effects from Medications: None. Objective- MSE: Alert and attentive. Orientation times three. Dressed and Groomed: Appropriately. Pleasant and cooperative. Psychomotor Activity: Normal. Speech: Normal in tone, quality, and over productive. Mood: I am feeling much better Affect: Appropriate. SI or HI: None. Perceptual disturbance: None. Thought Content: Paranoid delusions. No other delusional thinking noted. Thought Process: Normal. Cognition: Intact Judgment and Insight: Fair AIMS: Normal. Labs: No new labs. Diagnosis: No change. Plan and Recommendations: Continue current Medications. Increase Li to 300 mg tid.Monitor MS and side effects of medications and adjust medications accordingly. Provide supportive psychotherapy. The patient provided psychoeducation and advised The patient provided Substance abuse counseling. Smoke cessation therapy. The patient to attend kimball activities. CBC with Diff, CMP, TSH, Lipid Profile, HbA1c, EKG, Medication Consent with explanation of risk/benefits and side effects: Explained and obtained.
[2023-12-08 07:40] LABS: Glucose,Whole Blood 172 mg/dL (70-110)
[2023-12-08 09:47] LABS: HIV-1 RNA Not detected (Not detected)
[2023-12-08 12:00] LABS: Basophils # (A) 0.1 k/uL (0-0.2); Basophils % (A) 1 %; Eosinophils # (A) 0.2 k/uL (0-0.7); Eosinophils % (A) 2 %; HCT 49.1 % (39.0-53.0); HGB 16.1 gm/dL (13.0-17.5); Lymphocytes # (A) 1.6 k/uL (1.0-4.8); Lymphocytes % (A) 19 %; MCH 30.2 pg (25.0-35.0); MCHC 32.8 g/dL (31.0-37.0); MCV 92.1 fL (80.0-100.0); Mean Platelet Volume 8.5; Monocytes # (A) 0.6 k/uL (0-1.0); Monocytes % (A) 7 %; Neutrophils % (A) 70 %; Platelet Count 247 k/uL (150-450); RBC 5.34 m/uL (4.30-5.90); RDW 12.4 % (11.5-15.5); WBC 8.7 k/uL (3.8-10.6)
[2023-12-08 12:09] LABS: ALT 20 U/L (4-49); African American GFR (CKD) >90 (>60 ml/min/1.73 sqM); Albumin 4.2 g/dL (3.5-5.0); Alkaline Phosphatase 78 U/L (38-126); Anion Gap 4 mmol/L; Blood Urea Nitrogen 13 mg/dL (9-20); Calcium 9.9 mg/dL (8.4-10.2); Carbon Dioxide 29 mmol/L (22-30); Chloride 104 mmol/L (98-107); Glucose 125 mg/dL (74-99); Non-African American GFR(CKD) >90 (>60 ml/min/1.73 sqM); Potassium 4.7 mmol/L (3.5-5.1); Sodium 137 mmol/L (137-145); Total Bilirubin 0.6 mg/dL (0.2-1.3); Total Protein 6.4 g/dL (6.3-8.2)
[2023-12-08 12:40] LABS: Glucose,Whole Blood 112 mg/dL (70-110)
[2023-12-08 15:26] LABS: Chol/HDL Ratio 2.54 Ratio; LDL Cholesterol,Calculated 70.6 mg/dL (0.0-131.0)
--- NOTE | 2023-12-08 16:59 | P.PN ---
Progress Note - Text Progress Note Date: 12/08/23 Follow-up Mediation Review Chief Complaint: I am worrying about housing. Subjective: The patient noted that he has not been able to find a housing. The patient has tried to reach his guardian but does not get any response or call back. The patient called his relatives in [place] but was not able to find any living arrangement. The patient has been talking with the social services manager to find a usp. The social services manager is hopeful of finding something in [facility]. The patient is willing to go there. He had no other complaints. He reported no side effects. The patient wants to continue to stay mentally well. He is not worried about Diabetes The patient has been attending the groups. The participation is limited. The interaction with staff and peers is limited and sometimes confrontational. The patient is compliant with treatment recommendations. Leading questions: The patient admitted to mild Depression and Anxiety due to his situation and housing. Denied SI or HI. Denied symptoms consistent with psychosis Sleep and Appetite: Good. Change in family/ living/job/financial/daily routine: No change.. Change in medical condition: No change. Change in medications: No change. Side effects from Medications: None. Objective- MSE: Alert and attentive. Orientation times three. Dressed and Groomed: Appropriately. Pleasant and cooperative. Psychomotor Activity: Normal. Speech: Normal in tone, quality, and over productive. Mood: depressed and anxious. Affect: Appropriate. SI or HI: None. Perceptual disturbance: None. Thought Content: Paranoid delusions. No other delusional thinking noted. Thought Process: Normal. Cognition: Intact Judgment and Insight: Fair AIMS: Normal. Labs: No new labs. Diagnosis: No change. Plan and Recommendations: Continue current Medications. MS and side effects of medications and adjust medications accordingly. Provide supportive psychotherapy. The patient provided psychoeducation and advised The patient provided Substance abuse counseling. Smoke cessation therapy. The patient to attend kimball activities. Medication Consent with explanation of risk/benefits and side effects: Explained and obtained.
--- NOTE | 2023-12-09 17:09 | P.PN ---
Progress Note - Text Progress Note Date: 12/09/23 Follow-up Mediation Review Chief Complaint: I am worrying about housing. Subjective: The patient noted that he has been trying to reach his guardian but gets no response. The patient is very worried about his living situation. The is better and seems to be stable enough to go as an ot-pt but he will relapse within 1-3 days, if does have a place to live and go to his appointment for psychiatric care on regular basis. He should to go to a Supervised structured setting where medications can be dispensed. He may later be a candidate for independent living with [facility]. The patient had no other complaint The patient has been attending the groups. The participation is limited. The interaction with staff and peers is limitedl. The patient is compliant with treatment recommendations. Leading questions: The patient admitted to mild Depression and Anxiety due to his situation and housing. Denied SI or HI. Denied symptoms consistent with psychosis Sleep and Appetite: Good. Change in family/ living/job/financial/daily routine: No change. Change in medical condition: No change. Change in medications: No change. Side effects from Medications: None. Objective- MSE: Alert and attentive. Orientation times three. Dressed and Groomed: Appropriately. Pleasant and cooperative. Psychomotor Activity: Normal. Speech: Normal in tone, quality, and over productive. Mood: depressed and anxious. Affect: Appropriate. SI or HI: None. Perceptual disturbance: None. Thought Content: No paranoid delusions or other delusional thinking noted. Thought Process: Normal. Cognition: Intact Judgment and Insight: Fair AIMS: Normal. Labs: No new labs. Diagnosis: No change. Plan and Recommendations: Continue current Medications. MS and side effects of medications and adjust medications accordingly. Provide supportive psychotherapy. The patient provided psychoeducation and advised The patient provided Substance abuse counseling. Smoke cessation therapy. The patient to attend kimball activities. Medication Consent with explanation of risk/benefits and side effects: Explained and obtained.
--- NOTE | 2023-12-10 14:05 | P.PN ---
Progress Note - Text Progress Note Date: 12/10/23 Interval history: Patient was directable and agreeable to speak with singer songwriter. He reports frustration over his continued hospitalization, requests discharge soon, states he does not want to wait until Thursday. He claims mood is "great" with good appetite, despite appearing frustrated and somewhat irritable. He does not want to wait for the DC and states his brother can make post-discharge arrangements for him. He reports sleep is fragmented with difficulty falling asleep and would like an increase in his Trazodone dose. At this time patient denies any suicidal or homicidal ideation, intent or plan. Denies any auditory or visual hallucinations. Patient denies any side effects from the medications and has been compliant with meds. Mental status exam: General Appearance: Patient appears to be stated age, . Behavior: No agitated behavior. Patient is focused on discharge and requires redirection from this topic. Speech: Patient's speech is fluent and non-pressured. Mood/Affect: Mood is "great" , affect is mood-incongruent and constricted, frustrated. Suicidality/Homicidality: Patient denies having any suicidal or homicidal ideation intent or plan. Perceptions: Patient denies any auditory or visual hallucinations. Though content/process: There is no evidence of any delusional thought content and thought process is fixated on being hospitalized still. Memory and concentration: AOX3, grossly intact for the purposes of this session Judgment and insight: Improving mildly Assessment/Plan: Continue with current diagnosis. Patient continues to meet criteria for inpatient psychiatric admission for symptom stabilization and safety. Increase Trazodone to 100 mg QHS for sleep. Monitor for medication compliance and for any psychotropic medication side effects. Will continue to monitor ongoing response to treatment. Encouraged participation in milieu. Treatment team to discuss discharge plans with patient.
[2023-12-10] MEDS: traZODone HCL 50 MG TAB PO SCH (21:13)
--- NOTE | 2023-12-11 10:44 | P.PN ---
Progress Note - Text Progress Note Date: 12/11/23 Follow-up Mediation Review Chief Complaint: I will try my brother again. Subjective: The patient noted that he is unable to find a place to live. He was upset for being hospitalized. The patient noted that he was put in the hospital with baseless allegations. He wants his out of current [facility]. The patient was provided support and reassurance. The patient settled down. He was informed about his blood reports. He was informed that his HbA1c is 7.4 and Triglycerides 208. Indicating that the Diabetes is worse. He was strongly recommended to reconsider taking Zyprexa. The patient agreed. Discussed alternate agents. He agreed to take Geodon and taper off Zyprexa. His Zyprexa to be lowered to 10 mg po bid and Geodon 20 mg to be added. The patient has been attending the groups. The participation is limited. The interaction with staff and peers is limited. The patient is compliant with treatment recommendations. Leading questions: The patient admitted to mild Depression and Anxiety due to his situation and housing. Denied SI or HI. Denied symptoms consistent with psychosis Sleep and Appetite: Good. Change in family/ living/job/financial/daily routine: No change. Change in medical condition: No change. Change in medications: No change. Side effects from Medications: None. Objective- MSE: Alert and attentive. Orientation times three. Dressed and Groomed: Appropriately. Pleasant and cooperative. Psychomotor Activity: Normal. Speech: Normal in tone, quality, and over productive. Mood: Upset and angry. Affect: Irritable and anxious. SI or HI: None. Perceptual disturbance: None. Thought Content: Slight paranoia noted. No other delusional thinking noted. Thought Process: Normal. Cognition: Intact Judgment and Insight: Fair AIMS: Normal. Labs: Labs discussed with the patient. Diagnosis: No change. Plan and Recommendations: Continue current Medications. MS and side effects of medications and adjust medications accordingly. Provide supportive psychotherapy. The patient provided psychoeducation and advised The patient provided Substance abuse counseling. Smoke cessation therapy. The patient to attend kimball activities. Medication Consent with explanation of risk/benefits and side effects: Explained and obtained.
[2023-12-11] MEDS: OLANZapine ODT 10 MG TAB PO SCH (21:34)
[2023-12-12] MEDS: ZIPRASIDONE 20 MG CAP PO SCH (09:13)
[2023-12-12 09:18] LABS: Appearance,Urine Clear (Clear); Bilirubin,Urine Negative (Negative); Blood,Urine Negative (Negative); Color,Urine Colorless; Glucose,Urine (UA) 4+ (Negative); Ketones,Urine Negative (Negative); Leukocyte Esterase,Urine Negative (Negative); Nitrite,Urine Negative (Negative); Protein,Urine Negative (Negative); Specific Gravity,Urine 1.009 (1.001-1.035); Urobilinogen,Urine <2.0 mg/dL (<2.0)
--- NOTE | 2023-12-12 17:40 | P.PN ---
Progress Note - Text Progress Note Date: 12/12/23 Interval history: Patient was found relaxing in his room and agreeable to speak with casualty underwriter. He reports frustration over his continued hospitalization and medication change (Zyprexa decreased and started on Geodon for this morning). He refused his Geodon dose this morning and states he will continue to refuse it because he doesn't want to take Geodon. We reviewed his medications and he prefers to resume Zyprexa at 15 mg BID and we discussed adding Metformin 500 mg BID with meals for antipsychotic-related weight gain/glucose control and he expressed agreement. He claims mood is "great" with good appetite. He reports sleep is still "rough" and we discussed a trial of increasing Trazodone to 150 mg QHS. He does not want to wait for the DC and states his brother can make post-discharge arrangements for him. He reports sleep is fragmented with difficulty falling asleep and would like an increase in his Trazodone dose. At this time patient denies any suicidal or homicidal ideation, intent or plan. Denies any auditory or visual hallucinations. Patient denies any side effects from the medications and has been compliant with meds. Mental status exam: General Appearance: Patient appears to be stated age, . Behavior: No agitated behavior. Patient is focused on discharge and requires redirection from this topic. Speech: Patient's speech is fluent and non-pressured. Mood/Affect: Mood is "great" , affect is mood-incongruent and constricted, frustrated. Suicidality/Homicidality: Patient denies having any suicidal or homicidal ideation intent or plan. Perceptions: Patient denies any auditory or visual hallucinations. Though content/process: There is no evidence of any delusional thought content and thought process is fixated on being hospitalized still. Memory and concentration: AOX3, grossly intact for the purposes of this session Judgment and insight: Improving mildly Assessment/Plan: Continue with current diagnosis. Patient continues to meet criteria for inpatient psychiatric admission for symptom stabilization and safety. Discontinue Geodon due to patient refusal. Increase Zyprexa back to 15 mg BID for mood stabilization. Start metformin 500 mg BID with meals for antipsychotic-induced weight gain/glucose control. Trial of increasing Trazodone to 150 mg QHS for sleep. Monitor for medication compliance and for any psychotropic medication side effects. Will continue to monitor ongoing response to treatment. Encouraged participation in milieu.
[2023-12-12] MEDS: metFORMIN 500 MG TAB PO SCH (18:10)
[2023-12-12] MEDS: OLANZapine ODT 5 MG TAB PO SCH (20:49)
[2023-12-12] MEDS: traZODone HCL 50 MG TAB PO SCH (20:50)
--- NOTE | 2023-12-13 22:09 | P.PN ---
Progress Note - Text Progress Note Date: 12/13/23 Interval history: Patient was agreeable to speak with fiction writer. He reports good mood, sleep and appetite. He is more calm on the Zyprexa 15 mg BID. He reports sleeping well last night after increasing his Trazodone to 150 mg QHS last night. At this time patient denies any suicidal or homicidal ideation, intent or plan. Denies any auditory or visual hallucinations. Patient denies any side effects from the medications and has been compliant with meds. Mental status exam: General Appearance: Patient appears to be stated age, dressed in clean casual attire, average hygiene/grooming. Behavior: No agitated behavior. Patient is focused on discharge and requires redirection from this topic. Speech: Patient's speech is fluent and non-pressured. Mood/Affect: Mood is "good" , affect is mood-congruent and euthymic. Suicidality/Homicidality: Patient denies having any suicidal or homicidal ideation intent or plan. Perceptions: Patient denies any auditory or visual hallucinations. Though content/process: There is no evidence of any delusional thought content and thought process is linear/logical. Memory and concentration: AOX3, grossly intact for the purposes of this session Judgment and insight: Improving mildly Assessment/Plan: Continue with current diagnosis. Patient continues to meet criteria for inpatient psychiatric admission for symptom stabilization and safety. Continue medications as currently ordered. Monitor for medication compliance and for any psychotropic medication side effects. Will continue to monitor ongoing response to treatment. Encouraged participation in milieu.
[2023-12-14 13:43] LABS: C. trachomatis,PCR Negative (Negative); N. gonorrhoeae,PCR Negative (Negative)
--- NOTE | 2023-12-14 15:50 | P.PN ---
Progress Note - Text Progress Note Date: 12/14/23 Follow-up Mediation Review Chief Complaint: I need a place to live. Subjective: The patient noted that he cant be on the street. He noted that he wants to go back to [place]. As per the social work, the patients mother and brother want him to come back to [place]. The social work is going to talk to the family and see if the brother can take the patient and then talk to the Gaurdian about disposition.is unable to find a place to live. He was upset for being hospitalized. The patient noted that he was put in the hospital with baseless allegations. He wants his out of current CM. The patient was placed back on Zyprexa 15 mg po bid over the weekend because that what the patient wanted. Metformin was added to his treatment by the doctor correctional counselor/case manager over the weekend. He stated that he will manage his Diabetes and will consult with his PCP before making any changes. The patient has been attending the groups. The participation is limited. The interaction with staff and peers is limited. The patient is compliant with treatment recommendations. Leading questions: The patient admitted to mild Depression and Anxiety due to his situation and housing. Denied SI or HI. Denied symptoms consistent with psychosis Sleep and Appetite: Good. Change in family/ living/job/financial/daily routine: No change. Change in medical condition: No change. Change in medications: No change. Side effects from Medications: None. Objective- MSE: Alert and attentive. Orientation times three. Dressed and Groomed: Appropriately. Pleasant and cooperative. Psychomotor Activity: Normal. Speech: Normal in tone, quality, and over productive. Mood: Upset and angry. Affect: Irritable and anxious. SI or HI: None. Perceptual disturbance: None. Thought Content: Slight paranoia noted. No other delusional thinking noted. Thought Process: Normal. Cognition: Intact Judgment and Insight: Fair AIMS: Normal. Labs: Labs discussed with the patient. Diagnosis: No change. Plan and Recommendations: Continue current Medications. MS and side effects of medications and adjust medications accordingly. Provide supportive psychotherapy. The patient provided psychoeducation and advised The patient provided Substance abuse counseling. Smoke cessation therapy. The patient to attend kimball activities. Medication Consent with explanation of risk/benefits and side effects: Explained and obtained.
[2023-12-15 07:06] VITALS: RESP 16; TEMP 98.1
[2023-12-15 11:53] VITALS: BMI 24.2
--- NOTE | 2023-12-15 12:19 | P.PN ---
Progress Note - Text Progress Note Date: 12/15/23 Follow-up Mediation Review Chief Complaint: I have been told that I can go to [facility] Subjective: The patient noted that he is being placed by the social work in [facility]. The patient noted that his family does not respond to him but they all are helping him to come back to [place]. The has been pleasant and cooperative. His has no new complaints. There is meeting with [facility] and michael Blackman today to decide patients disposition. The patient has been attending the groups. The participation is limited. The interaction with staff and peers is limited. The patient is compliant with treatment recommendations. Leading questions: The patient admitted to mild Depression and Anxiety due to his situation and housing. Denied SI or HI. Denied symptoms consistent with psychosis Sleep and Appetite: Good. Change in family/ living/job/financial/daily routine: No change. Change in medical condition: No change. Change in medications: No change. Side effects from Medications: None. Objective- MSE: Alert and attentive. Orientation times three. Dressed and Groomed: Appropriately. Pleasant and cooperative. Psychomotor Activity: Normal. Speech: Normal in tone, quality, and over productive. Mood: I feel better Affect: Consistent with mood. SI or HI: None. Perceptual disturbance: None. Thought Content: No paranoia noted. No other delusional thinking noted. Thought Process: Normal. Cognition: Intact Judgment and Insight: Fair AIMS: Normal. Labs: No new labs. Diagnosis: No change. Plan and Recommendations: Continue current Medications. MS and side effects of medications and adjust medications accordingly. Provide supportive psychotherapy. The patient provided psychoeducation and advised The patient provided Substance abuse counseling. Smoke cessation therapy. The patient to attend kimball activities. Medication Consent with explanation of risk/benefits and side effects: Explained and obtained.
[2023-12-15] MEDS: MAG HYDROX/AL HYDROX/SIMETH 355 ML BOTTLE PO PRN (17:36)
[2023-12-16 06:55] VITALS: BP 121/74; PULSE 77
--- NOTE | 2023-12-16 13:19 | P.DS ---
Providers Date of admission: 12/03/23 00:46 Expected date of discharge: 12/16/23 Attending physician: Mohsen Do MD Consults: 12/03/23 00:54 Consult Physician Routine Consulting Provider: Greyson Osman Consult Reason/Comments: H&P Do you want consulting provider notified?: Yes Primary care physician: Stated None - Discharge Diagnosis(es) (1) Bipolar disorder, current episode manic severe with psychotic features Status: Acute Hospital Course: Discharge Summary HPI: Identifying Data: Mr. Pittman is 53 years old, , white male, who lives in [place], [place] Chief Complaint: court ordered History of Psychiatric Illness- The patient noted that he was brought here against his wishes. As per petition, the patient was loud, disruptive, delusional, confused, slurring and rambling. He was non-compliant with medications. It appears that patient has these episodes off and on. The patient noted that he is on Zyprexa 15 mg, Trazodone 50 mg hs, Klonopin 1 mg. The patient was admitted to this hospital in Oct, 2022. He was first hospitalized at age 20. He has had 10 admissions since then. His last admission was in April 2023. The patient that most of the time he has been to the hospital for suicidality. He does not feel suicidal this time. He has been to the out-pt clinics since then off and on. His last visit was last month at [facility]. He wants to move to [facility] because he feels his life is being threatened here. He has been diagnosed with Manic -Depressive, OCD, Panic disorder. The patient thinks he is high functioning autism. The patient experiences symptoms of increased energy, scratching, stuttering, being hyper, arrange thing in order, anxiety, sadness, hopelessness, helplessness, and suicidal thoughts. He is currently having symptoms of decreased concentration, stuttering, tiredness. He denied feeling depressed, hopeless, helpless or suicidal. Past Psychiatric History: As stated above. Past Medication History: Prozac, Invega, Effexor, Abilify, Xanax, Navane, Depakote, Geodon, Seroquel, Luvox, Effexor, Zoloft. Leading questions: The patient admitted to Depression and Anxiety. Denied SI or HI. Denied symptoms consistent with psychosis Drugs and alcohol history: Marijuana occasionally. Alcohol rarely. Tobacco use: Smokes 25 to 30 cigarettes a day. Past Medical history: None, as per patient. He noted taking antihypertensive and antidiabetic medications in the past. Hospital Course: After admission, the patient was involved in pharmacotherapy, kimball milieu, and individual psychodynamic psychotherapy. The patient was started on Zyprexa, Cozad and Trazodone. Later the Zyprexa was discontinued and Geodon was started but the patient insisted on going back to Zyprexa. He was explained that Zyprexa has been implicated with increasing Blood Sugar and causing difficulty in managing Diabetes. The patient understood the risk. Benefits and side effects of Zyprexa and decided to stay on Zyprexa. He thinks the benefits of Zyprexa outweigh the risks. He stated, I would prefer Diabetes over my mental wellbeing. The dose was titrated to obtain the desire effects. The patient tolerated medications well without any side effects. The patient was also involved in kimball activities. The patient attended the groups and participated well. The patient interacted with peers and staff well. The patient slowly started showing improvement. The hospital course was uneventful. The patient symptoms of depression, suicidal and homicidal ideations abated. The psychosis improved. The patient was stable to be discharged to out-patient care. The patient did not have any guns or weapons in possession at home. MSE: Alert and attentive. Orientation times three Dressed and Groomed: Appropriately. Pleasant and cooperative. Psychomotor Activity: Normal. Speech: Normal in tone, quality, and quantity. Mood: Depressed and anxious. Affect: Labile SI or HI: None. Perceptual disturbance: None. Thought Content: No paranoia or other delusional thinking noted. Thought Process: Normal. Cognition: Intact Judgment and Insight: Poor Diagnosis: Bipolar disorder, manic phase with psychosis Plan: The patient to be discharged today. The patient has attained good improvement since admission. He is stable to be followed as an outpatient. The patient is not suicidal or Homicidal. He does not pose any harm to self or others. The patient remains at a greater risk of self-harm or harm to others than general population on a chronic basis due to psychiatric illness and substance abuse. The patient will continue taking following medication post discharge. The importance of medication compliance and maintaining regular appointments at psychiatric out-pt and PCP clinic was explained and encouraged. The patient was also advised to seek alcohol counseling and attend AA/NA meetings. The understood and agreed with the recommendations. gaming worker to arrange for and conduct family meeting to ensure safety upon discharge and answer any questions. The group social worker to arrange for patients follow-up appointments at [facility] for psychiatric care along with follow-up with PCP. The patient provided psychoeducation. Advised to call 911 or go to nearest ED or call this hospital in case of acute worsening of symptomatology, severe side effects or having suicidal, homicidal thoughts and feeling unsafe at home. Patient Condition at Discharge: Stable Plan - Discharge Summary Discharge Rx Participant: Yes New Discharge Prescriptions: New Cozad Carbonate 300 mg PO TID 15 Days #45 cap OLANZapine ODT [ZyPREXA Zydis] 15 mg PO BID 15 Days #30 tab metFORMIN HCL [Glucophage] 500 mg PO BID-W/MEALS 15 Days #30 tab Continue Zinc Gluconate [Zinc] 50 mg PO DAILY Multivitamins, Thera [Multivitamin (formulary)] 1 tab PO DAILY Albuterol Sulfate [Ventolin HFA] 1 - 2 puff INHALATION RT-Q4H PRN PRN Reason: Shortness Of Breath Vitamin D3(Unknown Dose) 1 tab PO DAILY Vitamin B-12(Unknown Dose) 1 tab PO DAILY Aspirin 81 mg PO BID clonazePAM [KlonoPIN] 1 mg PO HS #14 tab Metoprolol Tartrate [Lopressor] 25 mg PO BID #60 tab Changed traZODone HCL [Desyrel] 50 mg PO HS 15 Days #15 tab Discontinued FLUoxetine HCL [PROzac] 40 mg PO DAILY Discharge Medication List Zinc Gluconate [Zinc] 50 mg PO DAILY 10/20/22 [History] Albuterol Sulfate [Ventolin HFA] 1 - 2 puff INHALATION RT-Q4H PRN 12/02/23 [History] Aspirin 81 mg PO BID 12/02/23 [History] Multivitamins, Thera [Multivitamin (formulary)] 1 tab PO DAILY 12/02/23 [H istory] Vitamin B-12(Unknown Dose) 1 tab PO DAILY 12/02/23 [History] Vitamin D3(Unknown Dose) 1 tab PO DAILY 12/02/23 [History] Cozad Carbonate 300 mg PO TID 15 Days #45 cap 12/16/23 [Rx] Metoprolol Tartrate [Lopressor] 25 mg PO BID #60 tab 12/16/23 [Rx] OLANZapine ODT [ZyPREXA Zydis] 15 mg PO BID 15 Days #30 tab 12/16/23 [Rx] clonazePAM [KlonoPIN] 1 mg PO HS #14 tab 12/16/23 [Rx] metFORMIN HCL [Glucophage] 500 mg PO BID-W/MEALS 15 Days #30 tab 12/16/23 [Rx] traZODone HCL [Desyrel] 50 mg PO HS 15 Days #15 tab 12/16/23 [Rx] Follow up Appointment(s)/Referral(s): [facility] [Outside] - 12/23/23 8:00 am (12-23-23 at 8:[address] Strong at office) [facility] [NON-STAFF] - 1 Week Patient Instructions/Handouts: How to Stop Smoking (DC), Bipolar Disorder (DC), Obsessive Compulsive Disorder (DC) Activity/Diet/Wound Care/Special Instructions: Avoid the use of street drugs and alcohol. Take all medications as prescribed. When you are in need of refills on your medications, please contact your medical provider and/or outpatient psychiatrist/provider to have this done. Please go to your scheduled outpatient appointment for aftercare treatment. If symptoms return or become worse, call the crisis line at and/or go to the nearest emergency room for evaluation. National Suicide Hotline 132 Discharge Disposition: HOME SELF-CARE
== END 2023-12-16 10:52 | disposition home or self-care (01) | DRG 885 ==
LOC: EC 13:41 → 3MHU 12-03 00:46
PROVIDERS: ADMIT Psychiatry & Neurology Psychiatry; ATTEND Psychiatry & Neurology Psychiatry
DX: F31.2 Bipolar disorder, current episode manic severe with psychotic features (principal); R45.851 Suicidal ideations; F84.0 Autistic disorder; F41.0 Panic disorder [episodic paroxysmal anxiety]; F42.9 Obsessive-compulsive disorder, unspecified; F43.21 Adjustment disorder with depressed mood; I10 Essential (primary) hypertension; T43.505A Adverse effect of unspecified antipsychotics and neuroleptics, initial encounter; B35.3 Tinea pedis; Z79.899 Other long term (current) drug therapy; Z82.49 Family history of ischemic heart disease and other diseases of the circulatory system; Z91.148 Patient's other noncompliance with medication regimen for other reason; Z79.82 Long term (current) use of aspirin; F17.210 Nicotine dependence, cigarettes, uncomplicated; Z88.0 Allergy status to penicillin; Z88.8 Allergy status to other drugs, medicaments and biological substances; F06.4 Anxiety disorder due to known physiological condition
CPT/HCPCS: 36415; 80053; 80061; 80074; 80178; 80306; 81003; 82075; 83036; 84443; 84450; 85025; 86780; 87491; 87535; 87591; 87635; 99285

== ENCOUNTER → 2024-07-12 | Outpatient (CLI) | payer MEDICARE, OTHER ==
--- NOTE | 2024-07-12 13:58 | CTL ---
EXAMINATION TYPE: CT Low Dose Lung DATE OF EXAM ORDERED: 07/12/2024 COMPARISON: None CLINICAL INDICATION: Male, 54 years old with history of F17.210 nicotine dependence; PHH, tobacco use r, Lung cancer screening, History of Smoking/tobacco use. TECHNIQUE: Low dose computed tomography scan was performed through the chest at 1 mm thick sections a nd reconstructed images in multiple planes at 1 mm and [address] DLP: 94.[address] CTDI: 2.3 mGy Automated exposure control for dose reduction was used. CT DIAGNOSTIC QUALITY: Satisfactory FINDINGS: EXAMINATION TYPE: CT Low Dose Lung DATE OF EXAM ORDERED: 07/12/2024 HISTORY: Lung cancer screening CT DLP: 94.[address] CTDI: 2.3 mGy Automated exposure control for dose reduction was used. Comparison: None TECHNIQUE: Low dose computed tomography scan was performed through the chest at 1 mm thick sections a nd reconstructed images in multiple planes at 1 mm and [address] DIAGNOSTIC QUALITY: Satisfactory FINDINGS: There are multiple submillimeter nodules scattered throughout both lungs the largest of which is a 5. 4 mm right middle lobe nodule. There are mild emphysematous changes with an upper lobe predominance. The lungs are clear and there is no abnormal airspace consolidation or interstitial density. There is no mediastinal, hilar or axillary adenopathy. There is no pleural effusion, pleural thickening or pneumothorax. No focal osseous lesions are seen. Limited scans the upper abdomen reveals no gross abnormality IMPRESSION: 1. Lung rads Category 3, likely benign. Follow-up low-dose CT thorax in 6 months is recommended to co nfirm stability of the above described nodules. 2. No acute cardiopulmonary disease. 3. Mild emphysematous changes. [facility], , 07/12/2024 1:55 PM
== END | disposition home or self-care (01) ==
LOC: RADCTMAIN 12:53
PROVIDERS: ATTEND Family Medicine
DX: Z12.2 Encounter for screening for malignant neoplasm of respiratory organs (principal); J43.9 Emphysema, unspecified; F17.210 Nicotine dependence, cigarettes, uncomplicated
CPT/HCPCS: 71271

== ENCOUNTER 2024-08-11 14:45 | Emergency (ER) | payer MEDICARE, OTHER ==
[2024-08-11 14:53] VITALS: RESP 18; TEMP 98.5
--- NOTE | 2024-08-11 15:19 | ED ---
General Adult HPI - General Chief complaint: Psychiatric Symptoms Stated complaint: mental health Time Seen by Provider: 08/11/24 14:47 Source: patient, EMS Mode of arrival: EMS Limitations: no limitations - History of Present Illness Initial comments: Dictation was produced using [employer] dictation software. please excuse any grammatical, word or spelling errors. Chief Complaint: 54-year-old male with suicidal ideation History of Present Illness: Patient is a 54-year-old male with history of psychiatric illness presents to the ER for 1 to 2 days of suicidal ideation. Patient states that he has a plan to overdose or half. States that he is been dealing with a chronic abdominal issues. For some reason he was not able to qualify for a colonoscopy back in June. States that he does have some mild abdominal pain. The ROS documented in this emergency department record has been reviewed and confirmed by me. Those systems with pertinent positive or negative responses have been documented in the HPI. All other systems are other negative and/or noncontributory. - Related Data Home Medications Medication Instructions Recorded Confirmed Atorvastatin [Lipitor] 10 mg PO HS 08/11/24 08/11/24 Nada Carbonate [Nada 900 mg PO HS 08/11/24 08/11/24 Carbonate ER] Losartan [Cozaar] 25 mg PO DAILY 08/11/24 08/11/24 OLANZapine 20 mg PO HS 08/11/24 08/11/24 Omeprazole 20 mg PO DAILY 08/11/24 08/11/24 Pioglitazone [Actos] 15 mg PO DAILY 08/11/24 08/11/24 buPROPion XL [Wellbutrin XL] 300 mg PO DAILY 08/11/24 08/11/24 clonazePAM [KlonoPIN] 1 mg PO DAILY 08/11/24 08/11/24 metFORMIN HCL ER [Glucophage XR] 500 mg PO BID 08/11/24 08/11/24 traZODone HCL 150 mg PO HS 08/11/24 08/11/24 Previous Rx's Medication Instructions Recorded Metoprolol Tartrate [Lopressor] 25 mg PO BID #60 tab 12/16/23 Allergies Allergy/AdvReac Type Severity Reaction Status Date / Time paliperidone [From Invega] Allergy Itching/Increased Verified 08/11/24 16:25 Agitation Penicillins Allergy Diarrhea Verified 08/11/24 16:25 Review of Systems ROS Statement: Those systems with pertinent positive or pertinent negative responses have been documented in the HPI. ROS Other: All systems not noted in ROS Statement are negative. Past Medical History Past Medical History: Asthma, Diabetes Mellitus, Hypertension Additional Past Medical History / Comment(s): diverticulitis History of Any Multi-Drug Resistant Organisms: None Reported Past Surgical History: Tonsillectomy Past Anesthesia/Blood Transfusion Reactions: No Reported Reaction Past Psychological History: Anxiety, Bipolar Smoking Status: Current every day smoker Past Alcohol Use History: Occasional Past Drug Use History: None Reported - Past Family History Father History Unknown: Yes Family Medical History: Hypertension General Exam - General Exam Comments Initial Comments: PHYSICAL EXAM: General Impression: Alert and oriented x3, not in acute distress HEENT: Normocephalic atraumatic, extra-ocular movements intact, pupils equal and reactive to light bilaterally, mucous membranes moist. Cardiovascular: Heart regular rate and rhythm Chest: Able to complete full sentences, no retractions, no tachypnea Abdomen: abdomen soft, non-tender, non-distended, no organomegaly Musculoskeletal: Pulses present and equal in all extremities, no peripheral edema Motor: no focal deficits noted Neurological: CN II-XII grossly intact, no focal motor or sensory deficits noted Skin: Intact with no visualized rashes Psych: Normal affect and mood Limitations: no limitations Course Vital Signs 08/11/24 08/11/24 14:46 16:42 Temperature 98.5 F Pulse Rate 86 87 Respiratory 18 18 Rate Blood Pressure 171/103 161/92 O2 Sat by Pulse 98 98 Oximetry Medical Decision Making - Medical Decision Making Was pt. sent in by a medical professional or institution (, PA, SEASONAL CUSTOMER SERVICE ASSOCIATE, urgent care, hospital, or correction...) When possible be specific @ -No Did you speak to anyone other than the patient for history (EMS, parent, family, police, friend...)? What history was obtained from this source @ -No Did you review nursing and triage notes (agree or disagree)? Why? @ -I reviewed and agree with nursing and triage notes Were old charts reviewed (outside hosp., previous admission, EMS record, old EKG, old radiological studies, urgent care reports/EKG's, correction records)? Report findings @ -No old charts were reviewed Differential Diagnosis (chest pain, altered mental status, abdominal pain women, abdominal pain men, vaginal bleeding, musculoskeletal, weakness, fever, dyspnea, syncope, headache, dizziness, GI bleed, back pain, seizure, CVA, palpatations, mental health)? @ -Differential Mental Health: Depression, anxiety, bipolar, psychosis, schizophrenia, borderline personality, situational depression, adjustment disorder, behavioral disorder, brain tumor, malingering, substance abuse, encephalopathy, medication reaction, dementia, hypothyroidism, degenerative neurologic disorder, lupus.... This is not meant to be all-inclusive list EKG interpreted by me (3pts min.). @ -None done X-rays interpreted by me (1pt min.). @ -None done CT interpreted by me (1pt min.). @ -None done U/S interpreted by me (1pt. min.). @ -None done What testing was considered but not performed or refused? (CT, X-rays, U/S, labs)? Why? @ -None What meds were considered but not given or refused? Why? @ -None Was smoking cessation discussed for >3mins.? @ -No Were there social determinants of health that impacted care today? How? (Homelessness, low income, unemployed, alcoholism, drug addiction, transportation, low edu. Level, literacy, decrease access to med. care, long term, rehab)? @ -No Was there de-escalation of care discussed even if they declined (Discuss DNR or withdrawal of care, Hospice)? DNR status @ -No What co-morbidities impacted this encounter? (DM, HTN, Smoking, COPD, CAD, Cancer, CVA, ARF, Chemo, Hep., AIDS, mental health diagnosis, sleep apnea, morbid obesity)? @ -None Was patient admitted / discharged? Hospital course, mention meds given and route, prescriptions, significant lab abnormalities, going to OR and other [facility] info. @ -54-year-old male with psychiatric illness presents to the ER for suicidal ideation. Vital signs stable. Physical examination is benign. Does have some complaints of chronic abdominal pain. Labs ordered unremarkable. Patient medically cleared for EPS evaluation. Did you discuss the management of the patient with other professionals (professionals i.e. , PA, SEASONAL CUSTOMER SERVICE ASSOCIATE, lab, RT, psych nurse, long term care social worker, facsimile machine operator, teacher, hearing officer, caseworker intake)? Give summary @ -Patient seen and evaluated by EPS recommended discharge with safety plan. Was critical care preformed (if so, how long)? @ -No Undiagnosed new problem with uncertain prognosis? @ -No Drug Therapy requiring intensive monitoring for toxicity (Heparin, Nitro, Insulin, Cardizem)? @ -No Were any procedures done? @ -No Diagnosis/symptom? Acute, or Chronic, or Acute on Chronic? Uncomplicated (without systemic symptoms) or Complicated (systemic symptoms)? @ -Suicidal ideation Side effects of treatment? @ -No Exacerbation, Progression, or Severe Exacerbation? @ -No Poses a threat to life or bodily function? How? (Chest pain, [place], [place], pneumonia, PE, COPD, DKA, ARF, appy, cholecystitis, CVA, Diverticulitis, Homicidal, Suicidal, threat to staff... and all critical care pts) @ -yes - Lab Data Result diagrams: 08/11/24 15:33 08/11/24 15:33 Lab Results 08/11/24 08/11/24 Range/Units 15:33 15:33 WBC 8.8 (3.8-10.6) k/uL RBC 5.38 (4.30-5.90) m/uL Hgb 16.3 (13.0-17.5) gm/dL Hct 47.1 (39.0-53.0) % MCV 87.5 (80.0-100.0) fL MCH 30.3 (25.0-35.0) pg MCHC 34.6 (31.0-37.0) g/dL RDW 12.8 (11.5-15.5) % Plt Count 244 (150-450) k/uL MPV 8.2 Neutrophils % 69 % Lymphocytes % 20 % Monocytes % 6 % Eosinophils % 3 % Basophils % 1 % Neutrophils # 6.1 (1.3-7.7) k/uL Lymphocytes # 1.7 (1.0-4.8) k/uL Monocytes # 0.5 (0-1.0) k/uL Eosinophils # 0.2 (0-0.7) k/uL Basophils # 0.1 (0-0.2) k/uL Sodium 131 L (137-145) mmol/L Potassium 4.1 (3.5-5.1) mmol/L Chloride 97 L (98-107) mmol/L Carbon Dioxide 25 (22-30) mmol/L Anion Gap 9 mmol/L BUN 13 (9-20) mg/dL Creatinine 0.66 (0.66-1.25) mg/dL Est GFR (CKD-EPI)AfAm >90 (>60 ml/min/1.73 sqM) Est GFR (CKD-EPI)NonAf >90 (>60 ml/min/1.73 sqM) Glucose 269 H (74-99) mg/dL Calcium 9.4 (8.4-10.2) mg/dL Total Bilirubin 0.5 (0.2-1.3) mg/dL AST 21 (17-59) U/L ALT 29 (4-49) U/L Alkaline Phosphatase 93 (38-126) U/L Total Protein 6.6 (6.3-8.2) g/dL Albumin 4.1 (3.5-5.0) g/dL Lipase 115 (23-300) U/L Disposition Clinical Impression: Suicidal ideation Disposition: HOME SELF-CARE Condition: Fair Instructions (If sedation given, give patient instructions): Help Prevent Suicide (ED) Is patient prescribed a controlled substance at d/c from ED?: No Referrals: Norma Delaney MD [Primary Care Provider] - 1-2 days Time of Disposition: 18:14
[2024-08-11 15:42] LABS: Basophils # (A) 0.1 k/uL (0-0.2); Basophils % (A) 1 %; Eosinophils # (A) 0.2 k/uL (0-0.7); Eosinophils % (A) 3 %; HCT 47.1 % (39.0-53.0); HGB 16.3 gm/dL (13.0-17.5); Lymphocytes # (A) 1.7 k/uL (1.0-4.8); Lymphocytes % (A) 20 %; MCH 30.3 pg (25.0-35.0); MCHC 34.6 g/dL (31.0-37.0); MCV 87.5 fL (80.0-100.0); Mean Platelet Volume 8.2; Monocytes # (A) 0.5 k/uL (0-1.0); Monocytes % (A) 6 %; Neutrophils # (A) 6.1 k/uL (1.3-7.7); Neutrophils % (A) 69 %; Platelet Count 244 k/uL (150-450); RBC 5.38 m/uL (4.30-5.90); RDW 12.8 % (11.5-15.5); WBC 8.8 k/uL (3.8-10.6)
[2024-08-11 16:16] LABS: ALT 29 U/L (4-49); AST 21 U/L (17-59); African American GFR (CKD) >90 (>60 ml/min/1.73 sqM); Albumin 4.1 g/dL (3.5-5.0); Alkaline Phosphatase 93 U/L (38-126); Anion Gap 9 mmol/L; Blood Urea Nitrogen 13 mg/dL (9-20); Calcium 9.4 mg/dL (8.4-10.2); Carbon Dioxide 25 mmol/L (22-30); Chloride 97 mmol/L (98-107); Glucose 269 mg/dL (74-99); Lipase 115 U/L (23-300); Non-African American GFR(CKD) >90 (>60 ml/min/1.73 sqM); Potassium 4.1 mmol/L (3.5-5.1); Sodium 131 mmol/L (137-145); Total Bilirubin 0.5 mg/dL (0.2-1.3); Total Protein 6.6 g/dL (6.3-8.2)
[2024-08-11 18:17] VITALS: BP 162/99; PULSE 84
== END 2024-08-11 18:40 | disposition home or self-care (01) ==
LOC: EC 14:45 → EEVIPCON 14:45 → EC 18:40
DX: R45.851 Suicidal ideations (principal); F17.200 Nicotine dependence, unspecified, uncomplicated
CPT/HCPCS: 36415; 80053; 82075; 83690; 85025; 99285